=== PATIENT | female | born 1990 | race Caucasian/White ===

== ENCOUNTER 2025-03-04 20:23 | Emergency (ER) | payer OTHER, SELFPAY ==
[2025-03-04 21:29] VITALS: BP 130/88; PULSE 84; RESP 16; TEMP 37.2; O2SAT 100; BMI 31.0
[2025-03-04 21:45] VITALS: BP 138/85; PULSE 79; RESP 14; TEMP 36.7; O2SAT 100; BMI 31.0
--- OUTSIDE RECORDS SUMMARY | 2025-03-04 21:48 | XMS_ITS | Clinical Summary ---
Author Organization [facility] [place] [id number] Care Team Providers Care Disaster Response Director Name Role Phone Fifi Klein APRN Primary Care Provider [phone] Leigh Knox APRN Unavailable [phone] Allergies No known active allergies Medications Adderall XR 20 MG 24 hr capsule Take 1 capsule (20 mg) by mouth 3 (three) times a day. 08/27/2023 Active gabapentin (Neurontin) 600 MG tablet Take 1 tablet (600 mg) by mouth 1 (one) time each day. Active sertraline (Zoloft) 100 MG tablet Take 2 tablets (200 mg) by mouth 1 (one) time each day. Active methenamine hippurate (Hiprex) 1 g tabletIndicatio ns:Recurrent UTI Take 1 tablet (1 g) by mouth 2 (two) times a day. 60 tablet 11 05/08/2024 5 Active fluconazole (Diflucan) 150 MG tabletIndicatio ns:Yeast vaginitis TAKE 1 TABLET NOW AND 1 IN 4 DAYS. 2 tablet 1 05/08/2024 Active Active Problems Problem Noted Date Diagnosed Date Recurrent UTI 05/08/2024 Social History Tobacco Use Types Packs/Day Years Used Date Smoking Tobacco: Every Day Cigarettes Smokeless Tobacco: Never Tobacco Cessation:Ready to Q uit: Not Asked; Counseling Given: Not Answered Alcohol Use Standard Drinks/Week Comments Never 0 (1 standard drink = 0.6 oz pur e alcohol) PHQ-2 Answer Date Recorded Patient Health Questionnaire-2 Score 2 05/08/2024 Comments Unknown Sex and Gender Information Value Date Recorded Sex Assigned at Not on file Legal Sex Female 7:52 PM EDT Gender Identity Not on file Sexual Orientation Not on file Last Filed Vital Signs Vital Sign Reading Time Taken Comments Blood Pressure 119/81 05/08/2024 9:07 AM EDT Pulse 78 05/08/2024 9:07 AM EDT Temperature 36.7 C (98.1 F) 05/08/2024 9:07 AM EDT Respiratory Rate 12 05/08/2024 9:07 AM EDT Oxygen Saturation 99% 05/08/2024 9:07 AM EDT Inhaled Oxygen Concentration - - Weight 85.5 kg (188 lb 7.9 oz) 05/08/2024 9:07 A M EDT Height 162.6 cm (5' 4 ) 05/08/2024 9:07 AM EDT Body Mass Index 32.35 05/08/2024 9:07 AM EDT Plan of Treatment Health Maintenance Due Date Last Done Comments [facility]-HIV Screening 1990 [facility]-Hepatitis C Screening 1990 [facility]-/Child/Adol SDOH Screenings 1990 [facility]-Varicella Vaccines (1 of 2 - 13+ 2-dose series) 2003 HPV Vaccines (1 - 3-dose series) 2005 [facility]- SDOH Screenings 2008 [facility]-Adult SDOH Screenings 2008 [facility]-DTaP,Tdap,and Td Vaccine s (1 - Tdap) 2009 [facility]-Pneumococcal Vaccine: Pediatrics (0 to 5 Years) and At-Risk Patients (6 to 49 Years) (1 of 2 - PCV) 2009 [facility]-HPV/Cotest 2020 [facility]-WFNZO-12 Vaccine (1 - season) 2024 [facility]-Influenza Vaccine (#1) 2025 [facility]-Depression Screening 05/08/2025 05/08/2024 [facility]-Cervical Cancer Screening 04/09/2026 [facility]-Pap Smear 04/09/2026 04/09/2023 [facility]-Zoster Vaccines (1 of 2) 2040 [facility]-Hepatitis B Vaccines Completed 999, 06/10/1998, 03/11/1998 [facility]-Obesity Intervention Completed 05/08/2024 [facility]-HIB Vaccines Aged Out No longer e ligible based on patient's age to complete this topic [facility]-Hepatitis A Vaccines Aged Out No longer eligible based on patient's age to complete this topic [facility]-IPV Vaccines Aged Out No longer e ligible based on patient's age to complete this topic [facility]-Rotavirus Vaccines Aged Out No lo nger eligible based on patient's age to complete this topic Insurance MEDICAID Care Teams Disaster Response Director Relationship Specialty Start Date End Date Fifi Klein APRN [address] [place] [address] PCP - General 03/20/24 Leigh Knox APRN [address] [facility] [address] [place] [address] Nurse Practitioner Urology 05/08/24
[2025-03-04] MEDS: ACETAMINOPHEN 500MG TAB 1000 MG PO (21:55)
[2025-03-04] MEDS: LACTATED RINGERS 1000ML 500 ML 999 ML IV (21:55)
[2025-03-04 22:17] LABS: Microscopic, Urine URINE MICROSCOPIC (MICROSCOPIC)
[2025-03-04 22:19] LABS: Hematocrit 38.3 % (37.0-47.0); Hemoglobin 12.5 g/dL (12.2-16.2); Immature Granulocytes % 0.3 %; Mean Corpuscular HGB Conc 32.6 g/dL (31.8-35.4); Mean Corpuscular Hemoglobin 29.2 pg (27.0-31.2); Mean Corpuscular Volume 89.5 fl (81-99); Nucleated Red Blood Cells % 0 %; Platelet Count 266 K/mm3 (142-424); Red Blood Count 4.28 M/mm3 (4.20-5.40); Red Cell Distribution Width-SD 42.5 fL; White Blood Count 7.8 K/mm3 (4.8-10.8)
[2025-03-04 22:37] LABS: Alanine Aminotransferase 12 U/L (12-78); Albumin Level 4.7 g/dl (3.5-5.0); Albumin/Globulin Ratio 1.5 (1.1-1.8); Alkaline Phosphatase 53 U/L (38-126); Anion Gap 13.6 mEq/L (5-15); Aspartate Amino Transferase 22 U/L (14-36); Bilirubin,Total 0.8 mg/dl (0.2-1.3); Blood Urea Nitrogen 14 mg/dl (7-17); Calcium 9.4 mg/dl (8.4-10.2); Carbon Dioxide 26 mmol/L (22.0-30.0); Chloride 101 mmol/L (98-107); Creatinine Clearance Estimated 147 mL/min (50-200); Creatinine,Serum 0.70 mg/dl (0.52-1.04); Estimated Glomerular Filt Rate 96 ml/min (>60); GFR (African American) 116 ML/MIN (>60); Globulin 3.1 g/dL (1.3-3.2); Glucose 90 mg/dl (74-100); Lipase 39 U/L (23-300); Potassium 3.6 mmoL/L (3.5-5.1); Sodium 137 mmol/L (136-145); Total Protein,Serum 7.8 g/dl (6.3-8.2)
[2025-03-04 22:47] LABS: Bilirubin,Urine Negative (Negative); Color,Urine YELLOW (Yellow); Glucose,Urine (UA) Negative (Negative); Ketones,Urine Negative (Negative); Leukocyte Esterase,Urine Negative (Negative); PH,Urine 6.0 (5.0-8.5); Protein,Urine Negative (Negative); Specific Gravity, Urine 1.020 (1.005-1.030); Urobilinogen,Urine 0.2 EU/dl (0.2)
[2025-03-04 23:00] VITALS: BP 122/85; PULSE 97; O2SAT 98
[2025-03-04 23:08] LABS: Bacteria,Urine Trace /lpf
--- NOTE | 2025-03-04 23:10 | ED_ITS ---
Discharge Plan Disposition Patient Disposition: Home, Self-Care Prescriptions Prescriptions: New cefadroxil 500 mg capsule 500 mg PO BID 7 Days Qty: 14 0RF Referrals Follow up/Referrals: Linda Ahuja DO [Staff Physician, [facility]] - See instructions Provider,Referral, [Primary Care Provider, Medical] - See instructions Activity Restrictions/Add. Instructions Additional Instructions/Restrictions: You likely have a very early based on your lab work today. You also were found to have a urinary tract infection. Take the antibiotics as prescribed. You are being given referral to Dr. Ahuja, with [facility] to follow-up your . Take a vitamin regularly. You can take Tylenol to help with your pain. If you develop any new or worsening symptoms, such as fever, worsening pain, or if you become concerned for your health for any reason, return to the emergency department for evaluation. Clinical Impressions Clinical Impression: UTI (urinary tract infection), Positive blood test, Back pain Instructions Patient Instructions: DI for Acute Abdominal Pain Print Language Print Language: Wolof Discharge ED Provider: Tan Hi General Adult HPI General Chief complaint: Abdominal Pain Stated complaint: lower back pain,nausea,weakness,painful urination Time Seen by Provider: 03/04/25 21:23 Mode of Arrival: Family Vehicle Source of Information: Patient Description of Symptoms (Recalled from ER Triage Doc. by RN): Dysuria Pt presents to the ED with c/o dysuria and R sided flank pain X 2 weeks. Pt reports that she thinks she has a UTI and has self medicated at home with old antibiotics but is not getting better. Pt rpeorts hx of UTIs. Pt also reports that she took positive test today but is unsure how far along she is. Reports LMP X 1 month ago. History of Present Illness HPI narrative: Tricia Wick is a 34-year-old female who presents to the emergency department for complaints of bilateral back pain as well as dysuria. Patient states that she has had pain at the end of urination for 1 week and believes that she may have a urinary tract infection. She also reports initially having left-sided kidney pain that is now on both sides of her back. She has felt chilled. She denies any vomiting, diarrhea, vaginal discharge or bleeding. She does note that earlier today she took 3 at home test that were both faintly positive. Her last menstrual period was at the beginning of last month and she is around the time where she should start her period currently. Related Data Previous Rx's ?Medication ?Instructions ?Recorded cefadroxil 500 mg capsule 500 mg PO BID 7 days #14 cap s 03/04/25 Allergies Allergy/AdvReac Type Severity Reaction Status Date / Time No Known Drug Allergies Allergy Unknown Verified 03/04/25 21:52 allergy reaction [facility] Disclaimer: The information contained in this section may have been updated after the patient was seen, as this information can be updated by other users. Social History Smoking Status: Current every day smoker alcohol intake: never current occupational status: employed Travel in the last 8 weeks?: Inside the [place] ROS Obtained: Yes Systems reviewed as appropriate & no additional complaints except as documented Physical Exam General General appearance: alert and in no apparent distress Comment: appears uncomfortable Head Head exam: atraumatic Eye Eye exam: Present normal appearance ENT ENT exam: Present normal external ear exam Neck Neck exam: Present full ROM Chest Chest inspection: Present symmetric chest wall rise Respiratory Respiratory exam: Present normal lung sounds bilaterally; Absent respiratory distress Cardiovascular Cardiovascular exam: Present regular rate and normal rhythm Abdominal Exam Abdominal exam: Present soft; Absent tenderness or guarding Extremities Exam Extremities exam: Present normal inspection Back Exam Back exam: Present normal inspection; Absent CVA tenderness (R) or CVA tenderness (L) Neurological Exam Neurological exam: Present alert and oriented X3 Psychiatric Psychiatric exam: Present normal affect Skin Skin exam: Present warm and dry Medical Decision Making Medical Records Screening: Per USPSTF and CDC recommendations, given the prevalence of disease in our region, it is our hospital?s policy to screen for HIV and viral Hepatitis for all patients aged 18 and over and those with ongoing risk factors. Jon Inquiry Pt receiving controlled substance: No Vital Signs: 03/04/25 21:29 03/04/25 21:45 03/04/25 23:00 Temperature 98.9 F 98.1 F Temperature Source Oral Oral Pulse Rate 97 H Pulse Rate [Left] 84 79 Respiratory Rate 16 14 Blood Pressure 122/85 Blood Pressure [Right Arm] 130/88 138/85 Blood Pressure Mean 99 Blood Pressure Mean [Right Arm] 102 102 Blood Pressure Source Blood Pressure Source [Right Arm] Automatic Cuff Blood Pressure Position Blood Pressure Position [Right Arm] Sitting 02 Sat by Pulse Oximetry 100 100 98 Oxygen Delivery Method Room Air Room Air 03/04/25 23:30 03/05/25 00:00 03/05/25 00:30 Temperature Temperature Source Pulse Rate 88 88 75 Pulse Rate [Left] Respiratory Rate Blood Pressure 123/80 132/89 133/82 Blood Pressure [Right Arm] Blood Pressure Mean 102 105 99 Blood Pressure Mean [Right Arm] Blood Pressure Source Blood Pressure Source [Right Arm] Blood Pressure Position Blood Pressure Position [Right Arm] 02 Sat by Pulse Oximetry 96 99 100 Oxygen Delivery Method 03/05/25 01:02 Temperature 98.1 F Temperature Source Oral Pulse Rate 75 Pulse Rate [Left] Respiratory Rate 14 Blood Pressure 133/82 Blood Pressure [Right Arm] Blood Pressure Mean Blood Pressure Mean [Right Arm] Blood Pressure Source Automatic Cuff Blood Pressure Source [Right Arm] Blood Pressure Position Sitting Blood Pressure Position [Right Arm] 02 Sat by Pulse Oximetry Oxygen Delivery Method Room Air Lab Data Lab Results 03/04/25 22:05: WBC 7.8, RBC 4.28, Hgb 12.5, Hct 38.3, MCV 89.5, MCH 29.2, MCHC 32.6, RDW 13.2, Plt Count 266, MPV 9.9, Neut % (Auto) 68.0, Lymph % (Auto) 24.4, Burt % (Auto) 6.1, Eos % (Auto) 0.8, Baso % (Auto) 0.4, Neut # (Auto) 5.3, Lymph # (Auto) 1.9, Burt # (Auto) 0.5, Eos # (Auto) 0.1, Baso # (Auto) 0.0, Sodium 137, Potassium 3.6, Chloride 101, Carbon Dioxide 26, Anion Gap 13.6, BUN 14, Creatinine 0.70, Estimated Creat Clear 147, Estimated GFR 96, Est GFR ( Amer) 116, Glucose 90, Calcium 9.4, Total Bilirubin 0.8, AST 22, ALT 12, Alkaline Phosphatase 53, Total Protein 7.8, Albumin 4.7, Globulin 3.1, Albumin/Globulin Ratio 1.5, Lipase 39, HCG, Quant 9 H, Urine Color Yellow, Urine Appearance Clear, Urine pH 6.0, Ur Specific Thompson 1.020, Urine Protein Negative, Urine Glucose (UA) Negative, Urine Ketones Negative, Urine Blood Negative, Urine Nitrate Negative, Urine Bilirubin Negative, Urine Urobilinogen 0.2, Ur Leukocyte Esterase Negative, Urine WBC 10-20, Ur Squamous Epith Cells 5- 10, Urine Bacteria Trace, HCV Ab JODEE w/Rflx PCR Qn Negative, HIV Ag/Ab Combo Qual Negative 03/04/25 22:05 03/04/25 22:05 Orders (Tests/Meds): ED MEDICATIONS Discontinued Medications Generic Name Dose Route Start Last Admin Trade Name Freq PRN Reason Stop Dose Admin Acetaminophen 1,000 mg 03/04/25 21:36 03/04/25 21:55 Acetaminophen 500mg Tab PO 03/04/25 21:37 1,000 mg ONCE ONE Administration Lactated Ringer's 500 mls @ 999 mls/hr 03/04/25 21:36 03/04/25 21:55 Lactated Ringer's 1000 Ml Bag IV 03/04/25 22:06 999 mls/hr .Q31M ONE Administration Lactated Ringer's 500 mls @ 999 mls/hr 03/04/25 23:53 03/05/25 00:13 Lactated Ringer's 500ml IV 03/05/25 00:23 Not Given .Q31M ONE Oxycodone HCl 5 mg 03/04/25 23:53 03/05/25 00:18 Oxycodone 5mg Immediate Release Tablet PO 03/04/25 23:54 5 mg ONCE ONE Administration Pyridoxine HCl 50 mg 03/04/25 21:37 03/04/25 22:27 Pyridoxine (Vitamin B6) 50mg Tablet PO 03/04/25 21:38 Not Given ONCE ONE ORDERS Category Date Time Status POCUS Point of Care (ER Only) Stat Exams 03/04/25 21:32 Taken CBC w/Auto Diff [Complete Blood Count Auto Diff] Stat Lab 03/04/25 22:05 Completed CMP [Comprehensive Metabolic Panel] Stat Lab 03/04/25 22:05 Completed HCG,Quantitative Stat Lab 03/04/25 22:05 Completed HIV Combo Stat Lab 03/04/25 22:05 Completed Hepatitis C Ab Qual. W/ RFX Stat Lab 03/04/25 22:05 Completed Lipase Stat Lab 03/04/25 22:05 Completed UA [Urinalysis and Microscopic] Stat Lab 03/04/25 22:05 Completed Urine Culture Stat Micro 03/04/25 22:05 Received Medical Decision Narrative: Tricia Wick is a 34-year-old female who presents to the emergency department for complaints of bilateral back pain as well as dysuria. Patient states that she has had pain at the end of urination for 1 week and believes that she may have a urinary tract infection. She also reports initially having left-sided kidney pain that is now on both sides of her back. She has felt chilled. She denies any vomiting, diarrhea, vaginal discharge, abdominal pain, or bleeding. She does note that earlier today she took 3 at home test that were both faintly positive. Her last menstrual period was at the beginning of last month and she is around the time where she should start her period currently. On arrival, patient is hemodynamically stable, normotensive, heart rate within normal limits, breathing comfortably on room air with appropriate oxygen saturation. Physical exam, as stated above, revealed an uncomfortable appearing female in no acute respiratory distress. Abdomen is soft, nontender nondistended. Cardiopulmonary exam is unremarkable. She has no CVA tenderness bilaterally. Differential diagnosis includes, but is not limited to: Urinary tract infection, kidney stone, . Patient is not having vaginal discharge and is not concerned about any possible sexually transmitted diseases. Dehydration, AGUS, among others. Workup in the emergency department included: CBC with differential, CMP, urinalysis, quantitative hCG, lipase, [id number] renal ultrasound bilaterally. Renal ultrasound performed by me. Patient was treated with 1 L lactated Ringer's as well as 1 g of Tylenol initially and received a 5 mg oxycodone orally for continued pain. No hydronephrosis or renal stone was appreciated bilaterally. See procedure note for details. Laboratory and urine workup interpreted by me personally as well. Patient's quantitative hCG is barely positive at 9, likely indicating a very early . Patient's urine shows 10-20 white blood cells with trace bacteria consistent with urinary tract infection given she is symptomatic. Laboratory studies otherwise unremarkable. Given this, is felt the patient has a urinary tract infection on is appropriate for outpatient antibiotics. Will treat with cefadroxil. Also encouraged to start vitamins. Patient is new to the area and does not have primary care providers. Will refer her to an DENTAL EQUIPMENT MECHANIC to establish care. Return precautions were given. All questions were answered. She demonstrated understanding and was in agreement this plan. She was then discharged from the emergency department in stable condition. Procedures Limited Ultrasound Interpretation:: Limited renal ultrasound Indication: A focused ultrasound of the kidneys was performed to evaluate for hydronephrosis and nephrolithiasis. The ultrasound was performed with the following indications, as noted in the H&P: Bilateral flank pain Identified structures: Both kidneys Findings: Bilateral kidneys both normal. No intrarenal or ureteral or vesicular calculi Impression: -Normal limited renal ultrasound, no evidence of hydronephrosis or calculi Images were saved to permanent archive The study was technically adequate CPT: 98190-21 This study was performed by me, and I personally interpreted all images/videos. Based on my clinical judgement, these images were [adequate/inadequate] and [did/did not] necessitate further imaging. Critical Care Critical Care Time Critical Care Time: No
[2025-03-04 23:25] LABS: Hepatitis C Ab Qual. W/ RFX NEGATIVE (Negative)
[2025-03-04 23:30] VITALS: BP 123/80; PULSE 88; O2SAT 96
[2025-03-05] VITALS: BP 132/89; PULSE 88; O2SAT 99
[2025-03-05] MEDS: OXYCODONE 5MG IMMEDIATE RELEASE TABLET 5 MG PO (00:18)
[2025-03-05 00:30] VITALS: BP 133/82; PULSE 75; O2SAT 100
[2025-03-05 01:02] VITALS: BP 133/82; PULSE 75; RESP 14; TEMP 36.7; O2SAT 100
--- NOTE | 2025-03-07 09:40 | PC.NURSE ---
Urine culture results reviewed by Dr. Mcelroy. No new orders received.
--- NOTE | 2025-03-10 08:59 | PC.NURSE ---
Urine culture results reviewed by Dr. Maki, no new orders received.
== END 2025-03-05 01:10 | disposition home or self-care (01) ==
PROVIDERS: Emergency Provider Student in an Organized Health Care Education/Training Program
DX: N39.0 Urinary tract infection, site not specified (principal); R30.0 Dysuria; M54.59 Other low back pain; Z32.01 Encounter for pregnancy test, result positive
CPT/HCPCS: 80053; 81001; 83690; 84702; 85025; 86803; 87086; 87088; 87186; 87389; 99284; J7120

== ENCOUNTER 2025-04-25 16:22 | Emergency (ER) | payer OTHER, SELFPAY ==
--- OUTSIDE RECORDS SUMMARY | 2025-03-26 15:51 | XMS_ITS | Encounter Summary ---
Author Organization [facility] Address [address] [place] [address] Care Team Providers Care Electronic Imager Name Role Phone Provider, No Known Primary Care Provider Unavail able Reason for Visit * Reason Comments Vomiting During Encounter Details Date Type Department Care Team (Late st Contact Info) Description 03/26/2025 3:51 PM EDT - 03/26/2025 6:39 PM EDT Emergency [facility] [address] [place] [address] Holli Butler MD [address] [facility] [place] [address] Nausea and vomiting during (Primary Dx); Less than 8 weeks gestation of Discharge Disposition: Home or Self Care Social History Tobacco Use Types Packs/Day Years Used Date Smoking Tobacco: Every Day Cigarettes 1 17.7 Started: 2007 Smokeless Tobacco: Never Alcohol Use Standard Drinks/Week Comments Not Currently 0 (1 standard drink = 0.6 oz pur e alcohol) wine once monthly AUDIT-C Answer Date Recorded Q1: How often do you have a drink containing alcohol? Never 11/23/2023 Q2: How many drinks containi ng alcohol do you have on a typical day when you are drinking? Patient does not drink Q3: How often do you have si x or more drinks on one occasion? Never 11/23/2023 Abuse Screen Answer Date Recorded Feels Unsafe at Home or Work/School no 03/26/2025 Feels Threatened by Someone no 02/28 Does Anyone Try to Keep You From Having Contact with Others or Doing Things Outside Your Home? no 03/26/2025 Physical Signs of Abuse Present no 03/26/2025 Housing Stability Answer Date Recorded Current Living Arrangements home 10/29 Potentially Unsafe Housing Conditions Not on kimmie e 11/23/2023 Disabilities Answer Date Recorded Difficulty Concentrating, Remembering or Making Decisions no 11/23/2023 Difficulty Managing Errands Independently no 11/23/2023 Estimated Date of Delivery Comme nts Yes 11/13/2025 Based on last me nstrual period of 02/06/2025 (Exact Date) Sex and Gender Information Value Date Recorded Sex Assigned at Not on file Legal Sex Female 3:46 PM EDT Gender Identity Not on file Sexual Orientation Not on file documented as of this encounter Last Filed Vital Signs Vital Sign Reading Time Taken Comments Blood Pressure 109/73 03/26/2025 3:12 PM EDT Pulse 73 03/26/2025 3:12 PM EDT Temperature 36.8 C (98.2 F) 03/26/2025 3:12 PM EDT Respiratory Rate 16 03/26/2025 3:12 PM EDT Oxygen Saturation 100% 03/26/2025 3:12 PM EDT Inhaled Oxygen Concentration - - Weight 83.9 kg (185 lb) 03/26/2025 3:12 PM EDT Height 162.6 cm (5' 4 ) 03/26/2025 3:12 PM EDT Body Mass Index 31.76 03/26/2025 3:12 PM EDT documented in this encounter Functional Status * Calculated C-SSRS Risk Score (Lifetime/Recent) Answer Date of Assessment Author No Risk Indicated 03/26/2025 4:10 PM EDT Evy Cohen RN * [place] Suicide Severity Rating Scale (Screener/Recent Self-Report) Question Answer Date of Assessment Author 1. Wish to be (Past 1 Month) No 025 4:10 PM EDT Prince Cohen, MARY 2. Non-Specific Active Suici trey Thoughts (Past 1 Month) No 03/26/2025 4:10 PM EDT Prince Cohen RN 6. Suicidal Behavior (Lifetime) No 4:10 PM EDT Prince Cohen RN documented as of this encounter Discharge Instructions * Attachments The following attachments cannot be sent through Care Everywhere. * Severe Morning Sickness: What to Know (Samoan) * First Trimester of (Samoan) documented in this encounter Medications at Time of Discharge amphetamine-dextr oamphetamine XR (ADDERALL XR) 30 MG 24 hr capsule Take 1 capsule by mouth Every Morning 02/01/2025 folic acid (FOLVITE) 400 MCG tablet Take 1 tablet by mouth Daily. 90 tablet 1 11/14/2024 gabapentin (NEURONTIN) 600 MG tablet Take 1 tablet by mouth 3 (Three) Times a Day. HYDROcodone-aceta minophen (NORCO) 7.5-325 MG per tablet 1 tablet As Needed for Mild Pain. 03/15/2025 sertraline (ZOLOFT) 100 MG tablet Take 2 tablets by mouth Daily. amphetamine-dextr oamphetamine (ADDERALL) 20 MG tablet Take 1 tablet by mouth Daily. 04/09/2025 Ferric Maltol (ACCRUFeR) 30 MG capsule Take 1 capsule by mouth 2 (Two) Times a Day. 60 capsule 5 11/14/2024 04/09/2025 documented as of this encounter ED Notes * Pili Brandon APRN - 03/26/2025 3:58 PM EDT EMERGENCY DEPARTMENT ENCOUNTER Pt Name: Tricia Wick Pt : 1990 Room Number: RW2/R2 Date of encounter: 03/26/2025 PCP: Provider, No Known ED Provider: Pili Brandon APRN Historian: Patient HPI: Chief Complaint: Nausea, vomiting Context: Tricia Wick is a 34 y.o. female who presents to the ED c/o nausea and vomiting since 2 days ago. Patient reports being currently , last menstrual period 02/06/2025 G7, . Reports severe nausea, vomiting, not able to keep food or fluids down. Denies abdominal pain, vaginal bleeding or discharge. Has appoint with FIELD SERVICE REPRESENTATIVE on April 09. PAST MEDICAL HISTORY Past Medical History: Diagnosis Date ADHD Anxiety Depression Encounter for IUD removal 04/09/2023 Paragard History of miscarriage History of panic attacks most recent 2 months ago, as of 04/09/2023 Ovarian cyst PCB (post coital bleeding) Sciatica, left side PAST SURGICAL HISTORY Past Surgical History: Procedure Laterality Date APPENDECTOMY N/A 11/23/2023 Procedure: APPENDECTOMY LAPAROSCOPIC; Surgeon: Bairon Campbell MD; Location: [facility]; Service: General; Laterality: N/A; SECTION x5 DENTAL PROCEDURE implants DILATATION AND CURETTAGE 2019 post-MAB FAMILY HISTORY Family History Problem Relation Age of Onset Asthma Mother Diabetes Mother Hyperlipidemia Mother Irritable bowel syndrome Mother Nephrolithiasis Mother Colon cancer Paternal Grandmother Arthritis Maternal Grandmother Hypertension Maternal Grandmother Nephrolithiasis Maternal Grandmother Breast cancer Neg Hx Ovarian cancer Neg Hx Uterine cancer Neg Hx SOCIAL HISTORY Social History Socioeconomic History Marital status: Tobacco Use Smoking status: Every Day Current packs/day: 1.00 Average packs/day: 1 pack/day for 17.6 years (17.6 ttl pk-yrs) Types: Cigarettes Start date: 2007 Smokeless tobacco: Never Vaping Use Vaping status: Some Days Substances: Nicotine Devices: Disposable Substance and Sexual Activity Alcohol use: Not Currently Comment: wine once monthly Drug use: Never Sexual activity: Yes Partners: Male ALLERGIES Patient has no known allergies. REVIEW OF SYSTEMS Review of Systems All systems reviewed and negative except for those discussed in HPI. PHYSICAL EXAM I have reviewed the triage vital signs and nursing notes. ED Triage Vitals [03/26/25 1512] Temp Heart Rate Resp BP SpO2 98.2 ??F (36.8 ??C) 73 16 109/73 100 % Temp src Heart Rate Source Patient Position BP Location FiO2 (%) Oral Monitor Sitting -- -- Physical Exam GENERAL: Appears in no acute distress. HENT: Nares patent. EYES: No scleral icterus. CV: Regular rhythm, regular rate. No pedal edema RESPIRATORY: Normal effort. No audible wheezes, rales or rhonchi. ABDOMEN: Soft, nontender MUSCULOSKELETAL: No deformities. NEURO: Alert, moves all extremities, follows commands. SKIN: Warm, dry, no rash visualized. LAB RESULTS Recent Results (from the past 24 hours) hCG, Quantitative, Collection Time: 03/26/25 4:18 PM Specimen: Blood Result Value Ref Range HCG Quantitative 36,415.00 mIU/mL Comprehensive Metabolic Panel Collection Time: 03/26/25 4:18 PM Specimen: Blood Result Value Ref Range Glucose 89 65 - 99 mg/dL BUN 8.4 6.0 - 20.0 mg/dL Creatinine 0.60 0.57 - 1.00 mg/dL Sodium 137 136 - 145 mmol/L Potassium 3.8 3.5 - 5.2 mmol/L Chloride 103 98 - 107 mmol/L CO2 26.0 22.0 - 29.0 mmol/L Calcium 9.5 8.6 - 10.5 mg/dL Total Protein 6.9 6.0 - 8.5 g/dL Albumin 4.1 3.5 - 5.2 g/dL ALT (SGPT) 7 1 - 33 U/L AST (SGOT) 10 1 - 32 U/L Alkaline Phosphatase 47 39 - 117 U/L Total Bilirubin 0.3 0.0 - 1.2 mg/dL Globulin 2.8 gm/dL A/G Ratio 1.5 g/dL BUN/Creatinine Ratio 14.0 7.0 - 25.0 Anion Gap 8.0 5.0 - 15.0 mmol/L eGFR 121.0 >60.0 mL/min/1.73 Lipase Collection Time: 03/26/25 4:18 PM Specimen: Blood Result Value Ref Range Lipase 16 13 - 60 U/L CBC Auto Differential Collection Time: 03/26/25 4:18 PM Specimen: Blood Result Value Ref Range WBC 7.08 3.40 - 10.80 10*3/mm3 RBC 4.18 3.77 - 5.28 10*6/mm3 Hemoglobin 12.3 12.0 - 15.9 g/dL Hematocrit 37.6 34.0 - 46.6 % MCV 90.0 79.0 - 97.0 fL MCH 29.4 26.6 - 33.0 pg MCHC 32.7 31.5 - 35.7 g/dL RDW 13.2 12.3 - 15.4 % RDW-SD 43.6 37.0 - 54.0 fl MPV 9.9 6.0 - 12.0 fL Platelets 230 140 - 450 10*3/mm3 Neutrophil % 70.3 42.7 - 76.0 % Lymphocyte % 22.0 19.6 - 45.3 % Monocyte % 6.6 5.0 - 12.0 % Eosinophil % 0.6 0.3 - 6.2 % Basophil % 0.4 0.0 - 1.5 % Immature Grans % 0.1 0.0 - 0.5 % Neutrophils, Absolute 4.97 1.70 - 7.00 10*3/mm3 Lymphocytes, Absolute 1.56 0.70 - 3.10 10*3/mm3 Monocytes, Absolute 0.47 0.10 - 0.90 10*3/mm3 Eosinophils, Absolute 0.04 0.00 - 0.40 10*3/mm3 Basophils, Absolute 0.03 0.00 - 0.20 10*3/mm3 Immature Grans, Absolute 0.01 0.00 - 0.05 10*3/mm3 nRBC 0.0 0.0 - 0.2 /100 WBC Urinalysis With Culture If Indicated - Urine, Clean Catch Collection Time: 03/26/25 5:10 PM Specimen: Urine, Clean Catch Result Value Ref Range Color, UA Yellow Yellow, Straw Appearance, UA Cloudy (A) Clear pH, UA 7.5 5.0 - 8.0 Specific [place], UA 1.018 1.005 - 1.030 Glucose, UA Negative Negative Ketones, UA Negative Negative Bilirubin, UA Negative Negative Blood, UA Negative Negative Protein, UA Negative Negative Leuk Esterase, UA Negative Negative Nitrite, UA Negative Negative Urobilinogen, UA 0.2 E.U./dL 0.2 - 1.0 E.U./dL Urinalysis, Microscopic Only - Urine, Clean Catch Collection Time: 03/26/25 5:10 PM Specimen: Urine, Clean Catch Result Value Ref Range RBC, UA 0-2 None Seen, 0-2 /HPF WBC, UA 0-2 None Seen, 0-2 /HPF Bacteria, UA None Seen None Seen /HPF Squamous Epithelial Cells, UA 0-2 None Seen, 0-2 /HPF Hyaline Casts, UA None Seen None Seen /LPF Methodology Automated Microscopy POC Urine Collection Time: 03/26/25 5:12 PM Specimen: Urine Result Value Ref Range HCG, Urine, QL Positive (A) Lot Number [id number] Internal Positive Control Positive Internal Negative Control Negative Expiration Date If labs were ordered, I independently reviewed the results and considered them in treating the patient. PROCEDURES Procedures No orders to display MEDICATIONS GIVEN IN ER Medications sodium chloride 0.9 % flush 10 mL (has no administration in time range) thiamine (B-1) injection 100 mg (100 mg Intravenous Given 03/26/25 1624) sodium chloride 0.9 % bolus 1,000 mL (0 mL Intravenous Stopped 03/26/25 1700) ondansetron (ZOFRAN) injection 4 mg (4 mg Intravenous Given 03/26/25 1624) MEDICAL DECISION MAKING, PROGRESS, and CONSULTS All labs, if obtained, have been independently reviewed by me. All radiology studies, if obtained, have been reviewed by me and the radiologist dictating the report. All EKG's, if obtained, have beenindependently viewed and interpreted by me/my attending physician. Discussion below represents my analysis of pertinent findings related to patient's condition, differential diagnosis, treatment plan and final disposition. Patient is 34-year-old female A1, currently with last menstrual period on February 06 presented for evaluation of nausea and vomiting. Symptoms onset 2 days ago. No abdominal pain or vaginalbleeding, lab work was grossly unremarkable, hCG quant 36,415. Patient received fluids, antiemeticswith good result, felt much better, was hungry, was ready to be discharged. No transvaginal ultrasound was ordered -no abdominal pain or bleeding. Patient has upcoming appointment with FIELD SERVICE REPRESENTATIVE. She advised by FIELD SERVICE REPRESENTATIVE earlier today to take B6 and Unisom combination; she was discharged home in stable condition, return precautions discussed Differential diagnosis: Hyperemesis gravidarum, hypovolemia, anemia, electrolyte disbalance, dehydration, acute kidney injury Additional sources: - Discussed/ obtained information from independent historians: - External (non-ED) record review: Today 03/26/[address] Henning, patient was advised for B6 and Unisom combination for nausea and vomiting, was advised to come to ER for fluids - Chronic or social conditions impacting care: Currently - Shared decision making: Patient Orders placed during this visit: Orders Placed This Encounter Procedures Urine Culture - Urine, hCG, Quantitative, Urinalysis With Culture If Indicated - Urine, Clean Catch Comprehensive Metabolic Panel Lipase CBC Auto Differential Urinalysis, Microscopic Only - Urine, Clean Catch P.o. challenge Misc Nursing Order (Specify) POC Urine Insert Peripheral IV CBC & Differential Additional orders considered but not ordered: Transvaginal ultrasound ED Course: Consultants: Shared Decision Making: After my consideration of clinical presentation and any laboratory/radiology studies obtained, I discussed the findings with the patient/patient contact representative who is in agreement with the treatment plan and the final disposition. Risks and benefits of discharge and/or observation/admission were discussed. OF : EDT VITALS: BP - 109/73 HR - 73 TEMP - 98.2 ??F (36.8 ??C) (Oral) O2 SATS - 100% DIAGNOSIS Final diagnoses: Nausea and vomiting during Less than 8 weeks gestation of DISPOSITION DISCHARGE Patient discharged in stable condition. Reviewed implications of results, diagnosis, meds, responsibility to follow up, warning signs and symptoms of possible worsening, potential complications and reasons to return to ER. Patient/Family voiced understanding of above instructions. Discussed plan for discharge, as there is no emergent indication for admission. Pt/family is agreeable and understands need for follow up and possible repeat testing. Pt/family is aware that discharge does not mean that nothing is wrong but that it indicates no emergency is currently present that requires admission and they must continue care with follow-up as given below or with a physician of their choice. FOLLOW-UP Raudel Henning MD [address] [facility] [address] [place] [id number] Schedule an appointment as soon as possible for a visit [facility] [address] [facility] [phone] Medication List No changes were made to your prescriptions during this visit. Please note that portions of this document were completed with voice recognition software. Pili Brandon APRN 03/26/25 19:23 EDT Pili Brandon APRN 03/26/[id number] Cosigned by Holli Butler MD at 04/02/2025 3:10 PM EDT Associated attestation - Holli Butler MD - 04/02/2025 3:10 PM EDT SUPERVISE: For this patient encounter, I reviewed the APC's documentation, treatment plan, and medical decision making. Holli Butler MD 04/02/2025 15:10 EDT documented in this encounter Plan of Treatment Upcoming Encounters Date Type Department Care Team (Late st Contact Info) Description 05/07/2025 2:30 PM EDT Routine [facility] [address] [facility] [address] [place] [address] Raudel Henning MD [address] [place] [address] documented as of this encounter Procedures Procedure Name Priority Date/Time Associated Diagnosis Comments POCT PEFORM URINE STAT 03/26/2025 5:12 PM EDT URINALYSIS, MICROSCOPIC ONLY STAT 03/26/2025 5:10 PM EDT URINALYSIS W/ CULTURE IF INDICATED STAT 03/26/2025 5:10 PM EDT URINE CULTURE STAT 03/26/2025 5:10 PM EDT CBC WITH AUTO DIFFERENTIAL STAT 03/26/2025 4:18 PM EDT CBC AND DIFFERENTIAL STAT 03/26/2025 4:18 PM EDT HCG, QUANTITATIVE, STAT 03/26/2025 4:18 PM EDT LIPASE STAT 03/26/2025 4:18 PM EDT COMPREHENSIVE METABOLIC PANEL STAT 03/26/2025 4:18 PM EDT documented in this encounter Results * (ABNORMAL) POC Urine (03/26/2025 5:12 PM EDT) HCG, Urine, QL Positive(A) [facility] Lot Number [id number] [facility] Internal Positive Control Positive [facility] Internal Negative Control Negative [facility] Expiration Date [phone] [facility] Urine 03/26/2025 5:12 PM EDT Pili Flores APRN POINT OF CARE TEST ORDERABLE S Final Result [facility]
[address] [place] [address], [place] [phone] * Urine Culture - Urine, Urine, Clean Catch (03/26/2025 5:10 PM EDT) Urine Culture No growth ÁNGEL 03/28/2025 4:10 AM EDT [facility] Urine Urine specimen obtained by clean catch procedure / Unknown Collection / Unknown 03/26/2025 5:10 PM EDT 03/26/2025 5:25 PM EDT us Pili Flores APRN MICROBIOLOGY - GENERAL ORDER TORI Final Result [facility]
[address] [place] [address], [place] [phone] * Urinalysis, Microscopic Only - Urine, Clean Catch (03/26/2025 5:10 PM EDT) RBC, UA 0-2 None Seen, 0-2 /HPF 03/26/2025 5:34 PM EDT [facility] WBC, UA 0-2 None Seen, 0-2 /HPF 03/26/2025 5:34 PM EDT [facility] Bacteria, UA None Seen None Seen /HPF 03/26/2025 5:34 PM EDT [facility] Squamous Epithelial Cells, UA 0-2 None Seen, 0-2 /HPF 03/26/2025 5:34 PM EDT [facility] Hyaline Casts, UA None Seen None Seen /LPF 03/26/2025 5:34 PM EDT [facility] Methodology Automated Microscopy 03/26/2025 5:34 PM EDT [facility] Urine Urine specimen obtained by clean catch procedure / Unknown Collection / Unknown 03/26/2025 5:10 PM EDT 03/26/2025 5:25 PM EDT us Pili Flores APRN URINE ORDERABLES Final Resul t [facility]
[address] [place] [address], * (ABNORMAL) Urinalysis With Culture If Indicated - Urine, Clean Catch (03/26/2025 5:10 PM EDT) Color, UA Yellow Yellow, Straw 03/26/2025 5:34 PM EDT [facility] Appearance, UA Cloudy(A) Clear 03/26/2025 5:34 PM EDT [facility] pH, UA 7.5 5.0 - 8.0 03/26/2025 5:34 PM EDT [facility] Specific [place], UA 1.018 1.005 - 1.030 03/26/2025 5:34 PM EDT [facility] Glucose, UA Negative Negative 03/26/2025 5:34 PM EDT [facility] Ketones, UA Negative Negative 03/26/2025 5:34 PM EDT [facility] Bilirubin, UA Negative Negative 03/26/2025 5:34 PM EDT [facility] Blood, UA Negative Negative 03/26/2025 5:34 PM EDT [facility] Protein, UA Negative Negative 03/26/2025 5:34 PM EDT [facility] Leuk Esterase, UA Negative Negative 03/26/2025 5:34 PM EDT [facility] Nitrite, UA Negative Negative 03/26/2025 5:34 PM EDT [facility] Urobilinogen, UA 0.2 E.U./dL 0.2 - 1.0 E.U./dL 03/26/2025 5:34 PM EDT [facility] Urine Urine specimen obtained by clean catch procedure / Unknown Collection / Unknown 03/26/2025 5:10 PM EDT 03/26/2025 5:25 PM EDT [facility] - 03/26/2025 5:34 PM EDT In absence of clinical symptoms, the presence of pyuria, bacteria, and/or nitrites on the urinalysis result does not correlate with infection. us Pili Flores APRN URINE ORDERABLES Final Resul t [facility]
[address] [place] [address], * CBC Auto Differential (03/26/2025 4:18 PM EDT) WBC 7.08 3.40 - 10.80 10*3/mm3 03/26/2025 4:30 PM EDT [facility] RBC 4.18 3.77 - 5.28 10*6/mm3 03/26/2025 4:30 PM EDT [facility] Hemoglobin 12.3 12.0 - 15.9 g/dL 03/26/2025 4:30 PM EDT [facility] Hematocrit 37.6 34.0 - 46.6 % 03/26/2025 4:30 PM EDT [facility] MCV 90.0 79.0 - 97.0 fL 03/26/2025 4:30 PM EDT [facility] MCH 29.4 26.6 - 33.0 pg 03/26/2025 4:30 PM EDT [facility] MCHC 32.7 31.5 - 35.7 g/dL 03/26/2025 4:30 PM EDT [facility] RDW 13.2 12.3 - 15.4 % 03/26/2025 4:30 PM EDT [facility] RDW-SD 43.6 37.0 - 54.0 fl 03/26/2025 4:30 PM EDT [facility] MPV 9.9 6.0 - 12.0 fL 03/26/2025 4:30 PM EDT [facility] Platelets 230 140 - 450 10*3/mm3 03/26/2025 4:30 PM EDT [facility] Neutrophil % 70.3 42.7 - 76.0 % 03/26/2025 4:30 PM EDT [facility] Lymphocyte % 22.0 19.6 - 45.3 % 03/26/2025 4:30 PM EDT [facility] Monocyte % 6.6 5.0 - 12.0 % 03/[facility]25 [facility] Eosinophil % 0.6 0.3 - 6.2 % 03/26/2025 4:[facility] Basophil % 0.4 0.0 - 1.5 % 03/26/2025 4:30 PM EDT [facility] Immature Grans % 0.1 0.0 - 0.5 % 03/26/2025 4:30 [facility] Neutrophils, Absolute 4.97 1.70 - 7.00 10*3/mm3 03/26/2025 4:30 [facility] Lymphocytes, Absolute 1.56 0.70 - 3.10 10*3/mm3 03/26/2025 4:30 PM EDT [facility] Monocytes, Absolute 0.47 0.10 - 0.90 10*3/mm3 03/26/2025 4:30 [facility] Eosinophils, Absolute 0.04 0.00 - 0.40 10*3/mm3 03/26/2025 4:30 PM EDT [facility] Basophils, Absolute 0.03 0.00 - 0.20 10*3/mm3 03/26/2025 4:30 PM EDT [facility] Immature Grans, Absolute 0.01 0.00 - 0.05 10*3/mm3 03/26/2025 4:30 PM EDT [facility] nRBC 0.0 0.0 - 0.2 /100 WBC 03/26/2025 4:30 PM EDT [facility] Blood Venipuncture / Unknown 03/26/2025 4:18 PM EDT 03/26/2025 4:24 PM EDT Pili Flores APRN LAB BLOOD ORDERABLES Final R esult Performing Organization Address City/[facility] Co de Phone Number [facility]
[address] [place] [address], [place] [phone] * Lipase (03/26/2025 4:18 PM EDT) Lipase 16 13 - 60 U/L 03/26/2025 4:47 PM EDT [facility] Blood Venipuncture / Unknown 03/26/2025 4:18 PM EDT 03/26/2025 4:24 PM EDT Pili Flores APRN LAB BLOOD ORDERABLES Final R esult Performing Organization Address [facility] de Phone Number [facility]
[address] [place] [address], [place] [phone] * Comprehensive Metabolic Panel (03/26/2025 4:18 PM EDT) Glucose 89 65 - 99 mg/dL 03/26/2025 4:47 PM EDT [facility] BUN 8.4 6.0 - 20.0 mg/dL 03/26/2025 4:47 PM EDT [facility] Creatinine 0.60 0.57 - 1.00 mg/dL 03/26/2025 4:47 PM EDT [facility] Sodium 137 136 - 145 mmol/L 03/26/2025 4:47 PM EDT [facility] Potassium 3.8 3.5 - 5.2 mmol/L 03/26/2025 4:47 PM EDT [facility] Chloride 103 98 - 107 mmol/L 03/26/2025 4:47 PM EDT [facility] CO2 26.0 22.0 - 29.0 mmol/L 03/26/2025 4:47 PM EDT [facility] Calcium 9.5 8.6 - 10.5 mg/dL 03/26/2025 4:47 PM EDT [facility] Total Protein 6.9 6.0 - 8.5 g/dL 03/26/2025 4:47 PM EDT [facility] Albumin 4.1 3.5 - 5.2 g/dL 03/26/2025 4:47 PM T [facility] ALT (SGPT) 7 1 - 33 U/L 03/26/2025 4:47 PM [facility] AST (SGOT) 10 1 - 32 U/L 03/26/2025 4:47 PM T [facility] Alkaline Phosphatase 47 39 - 117 U/L 03/26/2025 4:47 PM T [facility] Total Bilirubin 0.3 0.0 - 1.2 mg/dL 03/26/2025 4:47 PM T [facility] Globulin 2.8 gm/dL 03/26/2025 4:47 PM [facility] Comment:Calculated Result A/G Ratio 1.5 g/dL 03/26/2025 4:47 PM T [facility] BUN/Creatinine Ratio 14.0 7.0 - 25.0 03/26/2025 4:47 PM [facility] Anion Gap 8.0 5.0 - 15.0 mmol/L 03/26/2025 4:47 PM T [facility] eGFR 121.0 >60.0 mL/min/1.7 3 03/26/2025 4:47 PM [facility] Blood Venipuncture / Unknown 03/26/2025 4:18 PM EDT 03/26/2025 4:24 PM EDT Narrative [facility] - 03/26/2025 4:47 PM EDT GFR Categories in Chronic Kidney Disease (CKD) GFR Category GFR (mL/min/1.73) Interpretation G1 90 or greater Normal or high (1) G2 60-89 Mild decrease (1) G3a 45-59 Mild to moderate decrease G3b 30-44 Moderate to severe decrease G4 15-29 Severe decrease G5 14 or less Kidney failure (1)In the absence of evidence of kidney disease, neither GFR category G1 or G2 fulfill the criteria for CKD. eGFR calculation 2020 CKD-EPI creatinine equation, which does not include race as a factor us Pili Flores APRN LAB BLOOD ORDERABLES Final R esult [facility]
[address] [place] [address], * hCG, Quantitative, (03/26/2025 4:18 PM EDT) HCG Quantitative 36,415.00 mIU/mL 03/26/20 5:58 PM EDT [facility] Blood Venipuncture / Unknown 03/26/2025 4:18 PM EDT 03/26/2025 4:24 PM EDT Narrative [facility] - 03/26/2025 5:58 PM EDT HCG Ranges by Gestational Age Females - non- premenopausal </= 1mIU/mL HCG Females - postmenopausal </= 7mIU/mL HCG 3 Weeks 5.8 - 71.2 mIU/mL 4 Weeks 9.5 - 750 mIU/mL 5 Weeks 217 - 7,138 mIU/mL 6 Weeks 158 - 31,795 mIU/mL 7 Weeks 3,697 - 163,563 mIU/mL 8 Weeks 32,065 - 149,571 mIU/mL 9 Weeks 63,803 - 151,410 mIU/mL 10 Weeks 46,509 - 186,977 mIU/mL 12 Weeks 27,832 - 210,612 mIU/mL 14 Weeks 13,950 - 62,530 mIU/mL 15 Weeks 12,039 - 70,971 mIU/mL 16 Weeks 9,040 - 56,451 mIU/mL 17 Weeks 8,175 - 55,868 mIU/mL 18 Weeks 8,099 - 58,176 mIU/mL Pili Flores APRN LAB BLOOD ORDERABLES Final R esult [facility]
[address] [place] [address], documented in this encounter Visit Diagnoses Diagnosis Nausea and vomiting during - Primary Less than 8 weeks gestation of documented in this encounter Administered Medications Inactive Administered Medications - up to 3 most recent administrations Medication Order MAR Action Action Date Dose Rate Site ondansetron (ZOFRAN) injection 4 mg 4 mg, Intravenous, Once, On Wed03/26/25 at 1615, For 1 dose, If multiple N/V medications ordered, use in the following order: Ondansetron, Prochlorperazine, Promethazine. Use PO unless patient refuses or patient unable to swallow. Given 03/26/2025 4:24 PM EDT 4 mg sodium chloride 0.9 % bolus 1,000 mL 1,000 mL, Intravenous, at 2,000 mL/hr, Administer over 0.5 Hours, Once, On Wed03/26/25 at 1615, For 1 dose New Bag 03/26/2025 4:24 PM EDT 1,000 mL 2000 mL/hr sodium chloride 0.9 % flush 10 mL 10 mL, Intravenous, As Needed, Line Care, Starting on Wed03/26/25 at 1558 thiamine (B-1) injection 100 mg 100 mg, Intravenous, Once, On Wed03/26/25 at 1615, For 1 dose, Doses of up to 250mg, give over 1-2 minutes (IV push). Doses 250mg and above, give over 30 minutes. Given 03/26/2025 4:24 PM EDT 100 mg documented in this encounter Active and Recently Administered Medications Times are shown in EDT. Scheduled Medication Order 03/24/2025 03/25/2025 03/26/2025 ondansetron (ZOFRAN) injection 4 mg (COMPLETED) 4 mg, Intravenous, Once, On Wed03/26/25 at 1615, For 1 dose, If multiple N/V medications ordered, use in the following order: Ondansetron, Prochlorperazine, Promethazine. Use PO unless patient refuses or patient unable to swallow. 1624 (Given - Provid er: Prince Cohen RN) sodium chloride 0.9 % bolus 1,000 mL (COMPLETED) 1,000 mL, Intravenous, at 2,000 mL/hr, Administer over 0.5 Hours, Once, On Wed03/26/25 at 1615, For 1 dose 1624 (New Bag - Prov ider: Prince Cohen RN)1700 (Stopped - Provider: Prince oChen RN) thiamine (B-1) injection 100 mg (COMPLETED) 100 mg, Intravenous, Once, On Wed03/26/25 at 1615, For 1 dose, Doses of up to 250mg, give over 1-2 minutes (IV push). Doses 250mg and above, give over 30 minutes. 1624 (Given - Provid er: Prince Cohen RN) PRN Medication Order 03/24/2025 03/25/2025 03/26/2025 sodium chloride 0.9 % flush 10 mL(Linked Group 1) 10 mL, Intravenous, As Needed, Line Care, Starting on Wed03/26/25 at 1558 Linked Groups Order Group 1: Insert Peripheral IV (CANCELED) STAT, Once, On Wed03/26/25 at 1559, For 1 occurrence And sodium chloride 0.9 % flush 10 mLJump to med 10 mL, Intravenous, As Needed, Line Care, Starting on Wed03/26/25 at 1558 documented in this encounter Care Teams Electronic Imager Relationship Specialty Start Date End Date Provider, [place] [address] PCP - General 10/24/22 documented as of this encounter
--- OUTSIDE RECORDS SUMMARY | 2025-04-09 13:30 | XMS_ITS | Encounter Summary ---
Author Organization [facility] Address [address] [place] [address] Care Team Providers Care Hand Packager Name Role Phone Provider, No Known Primary Care Provider Unavail able Reason for Visit * Diagnostic Imaging (Routine) - Closed Specialty Diagnoses / Procedures Referred By Contact Referred To Contact Obstetrics and Gynecology Diagnoses Early stage of Procedures US Ob < 14 Weeks Single or First Gestation US Ob Transvaginal Raudel Henning MD [address] [address] Phone: tel: fax: [facility] [address] [address] Phone: tel: fax: Referral ID Status Reason Start Date Expiration Date Visits Re quested Visits Authorized [id number] Closed 04/05/2025 07/05/2026 1 1 Encounter Details Date Type Department Care Team (Latest Contact Info) Description 04/09/2025 1:30 PM EDT Ancillary Procedure [facility] [address] [address] Early stage of Social History Tobacco Use Types Packs/Day Years [...] on file documented as of this encounter Plan of Treatment Upcoming Encounters Date Type Department Care Team (Late st Contact Info) Description 05/07/2025 2:30 PM EDT Routine [facility] [address] [facility] [address] [place] [phone] Raudel Henning MD [address] [place] [address] [facility] [address] [place] [address] documented as of this encounter Procedures Procedure Name Priority Date/Time Associated Diagnosis Comments US OB < 14 WEEKS SINGLE OR FIRST GESTATION Routine 04/09/2025 2:02 PM EDT Early stage of documented in this encounter Results * US Ob < 14 Weeks Single or First Gestation (04/09/2025 2:02 PM EDT) Anatomical Region Laterality Modality Body Ultrasound 04/09/2025 2:43 PM EDT Narrative 04/09/2025 2:39 PM EDT PAT NAME: PARKER ZAMORANO [facility] REC#: [id number] DA: 1990 PAT GEND: F PAT TYPE: O EXAM RENETTA: [phone] REF PHYS RAUDEL HENNING Addendum Notice - Due to Application/Epic Interface issue, exam and impression (on 04/09/25 ) refinalized - NO Changes to clinical content Indication ======== Dating; Confirmation of intrauterine Comparison Studies There are no relevant prior studies to which this study is being compared Method ======= Voluson E6, Transabdominal ultrasound examination. View: Adequate view ========= Drummond . Number of fetuses: 1 Single intrauterine present Dating ====== Method of dating: based on the LMP LMP on: 02/06/2025 GA by LMP 8 w + 6 d YUMIKO by LMP: 11/13/2025 Ultrasound examination on: 04/09/2025 GA by U/S based upon: CRL GA by U/S 8 w + 2 d YUMIKO by U/S: 11/17/2025 Assigned: based on the LMP, selected on 04/09/2025 Assigned GA 8 w + 6 d Assigned YUMIKO: 11/13/2025 length 280 d Biometry Standard FHR 171 bpm CRL 18.0 mm 8w 2d 7% [facility] General Evaluation Cardiac activity present. Placenta Too early to evaluate. Amniotic fluid normal. Maternal Structures Uterus / Cervix Uterus: Visualized Cervix: Visualized Ovaries / Tubes / Adnexa Rt ovary: Visualized Rt ovary D1 26.1 mm Rt ovary D2 23.4 mm Rt ovary D3 20.3 mm Rt ovary Vol 6.5 cm Lt ovary: Visualized Lt ovary D1 18.5 mm Lt ovary D2 13.1 mm Lt ovary D3 14.90 mm Lt ovary Vol 1.9 cm Impression Single viable intrauterine with normal cardiac activity and biometry consistent with clinical dates Recommendation Follow-up as clinically indicated. Spray Machine Loader: Chloe Maria RT R, [facility] Physician: Raudel Henning MD Electronically signed by: Raudel Henning MD at: 14:39 Procedure Note Raudel Henning MD - 04/09/2025 PAT NAME: PARKER ZAMORANO [facility] REC#: [id number] DA: 1990 PAT GEND: F PAT TYPE: O EXAM RENETTA: [id number] REF PHYS RAUDEL HENNING Addendum Notice - Due to Application/Epic Interface issue, exam and impression (04/09/25 ) refinalized - NO Changes to clinical content Indication ======== Dating; Confirmation of intrauterine Comparison Studies There are no relevant prior studies to which this study is beingcompared Method ======= Voluson E6, Transabdominal ultrasound examination. View: Adequate view ========= Drummond . Number of fetuses: 1 Single intrauterine present Dating ====== Method of dating:based on the LMP LMP on:02/06/2025 GA by LMP8 w + 6 d YUMIKO by LMP:11/13/2025 Ultrasound examination on:04/09/2025 GA by U/S based upon:CRL GA by U/S8 w + 2 d YUMIKO by U/S:11/17/2025 Assigned:based on the LMP, selected on 04/09/2025 Assigned GA8 w + 6 d Assigned YUMIKO:11/13/2025 [id number] d Biometry Standard HEJ357 bpm CRL18.0 mm 8w 2d 7% [facility] General Evaluation Cardiac activity present. Placenta Too early to evaluate. Amniotic fluid normal. Maternal Structures Uterus / Cervix Uterus:Visualized Cervix:Visualized Ovaries / Tubes / Adnexa Rt ovary:Visualized Rt ovary D126.1 mm Rt ovary D223.4 mm Rt ovary D320.3 mm Rt ovary Vol6.5 cm Lt ovary:Visualized Lt ovary D118.5 mm Lt ovary D213.1 mm Lt ovary D314.90 mm Lt ovary Vol1.9 cm Impression Single viable intrauterine with normal cardiac activity andbiometry consistent with clinical dates Recommendation Follow-up as clinically indicated. Spray Machine Loader: Chloe Maria RT R, [facility] Physician: Raudel Henning MD Electronically signed by: Raudel Henning MD at: 14:39 Raudel Henning MD [facility] ORDERABLES Edited Result - Final documented in this encounter Visit Diagnoses Diagnosis Early stage of state, incidental documented in this encounter Care Teams Hand Packager Relationship Specialty Start Date End Date Provider, No Known [facility] [place] [address] PCP - General 10/24/22 documented as of this encounter
--- OUTSIDE RECORDS SUMMARY | 2025-04-09 14:10 | XMS_ITS | Encounter Summary ---
Author Organization [facility] Address [address] [place] [address] Care Team Providers Care Children'S Counselor Name Role Phone Provider, No Known Primary Care Provider Unavail able Reason for Visit * Reason Comments Initial Visit Ultrasound 8w6d Encounter Details Date Type Department Care Team (Late st Contact Info) Description 04/09/2025 2:10 PM EDT Initial [facility] [address] [phone] Raudel Henning MD [address] [place] [id number] GA: 8w6d Social History Tobacco Use Types Packs/Day Years [...] Sign Reading Time Taken Comments Blood Pressure 108/68 04/09/2025 2:07 PM EDT Pulse - - Temperature - - Respiratory Rate - - Oxygen Saturation - - Inhaled Oxygen Concentration - - Weight 84.4 kg (186 lb) 04/09/2025 2:07 PM EDT Height - - Body Mass Index 31.93 03/26/2025 3:12 PM EDT documented in this encounter Progress Notes * Fide Seals RN - 04/09/2025 2:10 PM EDTAddended by: FIDE SEALS on: 04/09/2025 03:45 PM Modules accepted: Orders * Fide Seals RN - 04/09/2025 2:10 PM EDTAddended by: FIDE SEALS on: 04/09/2025 03:46 PM Modules accepted: Orders * Raudel Henning MD - 04/09/2025 2:10 PM EDT Images from the original note were not included. Initial ob visit CC- Here for care of Tricia Wick is a 34 y.o. female, , who presents for her first obstetrical visit. Patient's last menstrual period was 02/06/2025 (exact date).. Her YUMIKO is 11/13/2025, by Last MenstrualPeriod. Current GA is 8w6d. She is currently taking Adderall 30mg QD for ADHD, Gabapentin 600 mg QD for degenerative disc disease, and Langlois 7.5mg for pain. She states she is unsure how to stop taking Adderall and Gabapentin asshe can't just stop those medications. She states she does not take Langlois unless pain is unbearable, but states she halves the tablet. She states she has only taken Langlois twice since being so far. She had last pap 10/2024 with APRN. Arya +Trich. She was treated Flaygl and took all prescription. She did not have FLORENCIO. Initial positive test date : 03/03/25, UPT Her periods are every 30 days Prior obstetric issues: none Patient's past medical history is significant for: none. Family history of genetic issues (includes FOB): none Prior infections concerning in (Rash, fever in last 2 weeks): No Varicella Hx - history of chicken pox Prior testing for Cystic Fibrosis Carrier or Sickle Cell Trait- no Prepregnancy BMI - Body mass index is 31.93 kg/m??. History of STD: yes Trich + 10/2024 Hx of HSV for patient or partner: no Ultrasound Today: yes OB History Para Term AB Living 7 5 4 1 1 5 SAB IAB Ectopic Molar Multiple Live Births 1 0 0 0 5 # Outcome Date GA Lbr Blaine/2nd Weight Sex Type Anes PTL Lv 7 Current 6 05/26/21 36w0d 2948 g (6 lb 8 oz) M CS-LTranv ORQUIDEA 5 SAB 2020 9w0d SAB 4 Term 02/23/18 37w0d 3062 g (6 lb 12 oz) M CS-LTranv ORQUIDEA 3 Term 04/10/14 38w0d 3147 g (6 lb 15 oz) M CS-LTranv Spinal N ORQUIDEA Comments: vacuum-assisted delivery due to severe abdominal adhesions Complications: Abdominal adhesions, [place] delivered by vacuum extraction 2 Term 11/11/10 39w0d 2948 g (6 lb 8 oz) F CS-LTranv Spinal N ORQUIDEA 1 Term 09/20/08 38w0d 3544 g (7 lb 13 oz) M CS-LTranv Spinal N ORQUIDEA Complications: Intolerance, Failure to progress in labor Additional Pertinent History Last Pap : 11/09/24 Result: ASCUS HPV: negative Last Completed Pap Smear Upcoming PAP SMEAR (Every 3 Years) Next due on 11/10/2027 11/09/2024 LIQUID-BASED PAP SMEAR WITH HPV GENOTYPING IF ASCUS (PRAFUL,COR,MAD) 04/09/2023 LIQUID-BASED PAP SMEAR WITH HPV GENOTYPING REGARDLESS OF INTERPRETATION (PRAFUL,COR,MAD) 07/14/2021 Done - approximate dating; negative, per patient History of abnormal Pap smear: yes - ASCUS 10/2024, HPV neg; Family history of uterine, colon, breast, or ovarian cancer: yes - Colon Ca- PGM and PGF; Feelings of Anxiety or Depression: yes - well controlled Zoloft Tobacco Usage?: No Alcohol/Drug Use?: NO Over the age of 35 at delivery: 35 yo at delivery Genetic Screening: desires cell free DNA High Risk Moderate Risk Low Risk History of preeclampsia or gestational hypertension- No Multifetal gestation- No Chronic hypertension- No Pregestational Diabetes- No Kidney Disease- No Autoimmune disease (I.e. lupus, antiphospholipid syndrome)- No Nulliparity- No Obesity (BMI>30)- Yes Family history of preeclampsia- No Black race- No Lower socio-economic status- No Age 35+ - No IVF- No History of SGA - No >10 year interpregnancy interval- No Prior uncomplicated term delivery and absence of any risk factors- No Total: 0 Total: 1 Total: 0 For this patient, low dose aspirin is not indicated and aspirin 81mg has not been prescribed. PMH Current Outpatient Medications: amphetamine-dextroamphetamine XR (ADDERALL XR) 30 MG 24 hr capsule, Take 1 capsule by mouth Every Morning, Disp: , Rfl: folic acid (FOLVITE) 400 MCG tablet, Take 1 tablet by mouth Daily., Disp: 90 tablet, Rfl: 1 gabapentin (NEURONTIN) 600 MG tablet, Take 1 tablet by mouth 3 (Three) Times a Day. (Patient takingdifferently: Take 1 tablet by mouth Daily.), Disp: , Rfl: HYDROcodone-acetaminophen (NORCO) 7.5-325 MG per tablet, 1 tablet As Needed for Mild Pain. (Patienttaking differently: 1 tablet As Needed for Mild Pain. Takes 0.5mg PRN), Disp: , Rfl: vitamin (, CLASSIC, vitamin) tablet, Take by mouth Daily., Disp: , Rfl: sertraline (ZOLOFT) 100 MG tablet, Take 2 tablets by mouth Daily., Disp: , Rfl: Past Medical History: Diagnosis Date ADHD Anemia Anxiety Depression History of miscarriage History of panic attacks most recent 2 months ago, as of 04/09/2023 Ovarian cyst PCB (post coital bleeding) Sciatica, left side Past Surgical History: Procedure Laterality Date APPENDECTOMY N/A 11/23/2023 Procedure: APPENDECTOMY LAPAROSCOPIC; Surgeon: Bairon Campbell MD; Location: [facility]; Service: General; Laterality: N/A; SECTION x5 DENTAL PROCEDURE implants DILATATION AND CURETTAGE 2019 post-MAB Review of Systems Review of Systems Patient Reports: excessive nausea Patient Denies:excessive vomiting and vaginal bleeding All systems reviewed and otherwise normal. I have reviewed and agree with the HPI, ROS, and historical information as entered above. Raudel Henning MD BP 108/68 Wt 84.4 kg (186 lb) LMP 02/06/2025 (Exact Date) BMI 31.93 kg/m?? The additional following portions of the patient's history were reviewed and updated as appropriate: allergies, current medications, past family history, past medical history, past social history, past surgical history, and problem list. Physical Exam General: well developed; well nourished no acute distress mentation appropriate Chest/Respiratory: No labored breathing, normal respiratory effort, normal appearance, no respiratory noises noted Heart: not examined Thyroid: not examined Breasts: Not performed. Abdomen: soft, non-tender; no masses no umbilical or inguinal hernias are present no hepato-splenomegaly Pelvis: Clinical staff was present for exam External genitalia: normal appearance of the external genitalia including Bartholin's and [place]'s glands. : urethral meatus normal; urethra normal: Vaginal: normal pink mucosa without prolapse or lesions. Cervix: normal appearance. Assessment and Plan Problem List Items Addressed This Visit None Visit Diagnoses care, antepartum, unspecified - Primary Relevant Orders Obstetric Panel HIV-1 / O / 2 Ag / Antibody Urine Culture - Urine, Urine, Clean Catch Urinalysis With Microscopic - Urine, Clean Catch Hemoglobin A1c Varicella Zoster Antibody, IgG Thyroid [place] Profile Inheritest (R) CF/SMA Panel - Blood, Iron Profile Ferritin Chlamydia trachomatis, Neisseria gonorrhoeae, Trichomonas vaginalis, PCR - Swab, Cervix Attention deficit hyperactivity disorder (ADHD), unspecified ADHD type Relevant Medications amphetamine-dextroamphetamine XR (ADDERALL XR) 30 MG 24 hr capsule Other Relevant Orders ToxAssure Flex 24, Ur - Trichomonas infection Relevant Orders Chlamydia trachomatis, Neisseria gonorrhoeae, Trichomonas vaginalis, PCR - Swab, Cervix at 8w6d Reviewed routine care with the office and educational materials given Lab(s) Ordered Discussed options for genetic testing including first trimester nuchal translucency screen, geneticdisease carrier testing, quadruple screen, and NIPT Discontinue the use of all non-medicinal drugs and chemicals Nausea/Vomiting - she does not desire medications at this time. Discussed conservative ways to helpwith nausea. Patient is on vitamins Recommend limiting weight gain to 15 to 20 pounds in . Discussed carbohydrate control. hgb A1C today TFT today Discussed risks of medications. Recommend discontinuing Discussed increased risk of delivery. Considering tubal Return in about 4 weeks (around 05/07/2025) for Care. Raudel Henning MD 04/09/2025 documented in this encounter Plan of Treatment Upcoming Encounters Date Type Department Care Team (Late st Contact Info) Description 05/07/2025 2:30 PM EDT Routine [facility] [address] [phone] Raudel Henning MD [address] [address] Scheduled Orders Name Type Priority Associated Diagnoses Orde r Schedule Obstetric Panel Lab Routine care, antepartum, unspecified Ordered: 04/09/2025 HIV-1 / O / 2 Ag / Antibody Lab Routine care, antepartum, unspecified Ordered: 04/09/2025 Urine Culture - Urine, Urine, Clean Catch Microbiology Routine care, antepartum, unspecified Ordered: 04/09/2025 Urinalysis With Microscopic - Urine, Clean Catch Lab Panel Routine care, antepartum, unspecified Ordered: 04/09/2025 Hemoglobin A1c Lab Routine care, antepartum, unspecified Ordered: 04/09/2025 Varicella Zoster Antibody, IgG Lab Routine care, antepartum, unspecified Ordered: 04/09/2025 Thyroid [place] Profile Lab Routine care, antepartum, unspecified Ordered: 04/09/2025 Inheritest (R) CF/SMA Panel - Blood, Lab Routine care, antepartum, unspecified Ordered: 04/09/2025 Iron Profile Lab Routine care, antepartum, unspecified Ordered: 04/09/2025 Ferritin Lab Routine care, antepartum, unspecified Ordered: 04/09/2025 ToxAssure Flex 24, Ur - Lab Routine Attention deficit hyperactivity disorder (ADHD), unspecified ADHD type Ordered: 04/09/2025 documented as of this encounter Procedures Procedure Name Priority Date/Time Associated Diagnosis Comments CHLAMYDIA TRACHOMATIS, NEISSERIA GONORRHOEAE, TRICHOMONAS VAGINALIS, PCR Routine 04/09/2025 12:00 AM EDT care, antepartum, unspecified Trichomonas infection documented in this encounter Results * Chlamydia trachomatis, Neisseria gonorrhoeae, Trichomonas vaginalis, PCR - Swab, Cervix (2:00 AM EDT) Chlamydia trachomatis, FAY Negative Negative [facility] Gonococcus by FAY Negative Negative [facility] Trichomonas vaginosis Negative Negative [facility] Swab Cervix uteri structure / Unknown 04/09/2025 04/09/2025 Comment:Swab Release to felipe e Barbra [facility] - 04/11/2025 5:36 AM EDT Performed at: - [address] [id number] Sheet Metal Assembler And Riveter: Ania Mane MD, Phone: [phone] us Raudel Henning MD MICROBIOLOGY - GENERAL ORDERABL ES Final Result [facility] [address] [place] [address], [place] [phone] [facility] [address] [place] [address], documented in this encounter Visit Diagnoses Diagnosis care, antepartum, unspecified - Primary Attention deficit hyperactivity disorder (ADHD), unspecified ADHD type Trichomonas infection Unspecified trichomoniasis History of delivery affecting documented in this encounter Care Teams Children'S Counselor Relationship Specialty Start Date End Date Provider, [place] [address] PCP - General 10/24/22 documented as of this encounter
--- OUTSIDE RECORDS SUMMARY | 2025-04-10 11:45 | XMS_ITS | Encounter Summary ---
Author Organization [facility] Address [address] [place] [address] Care Team Providers Care Stamps Or Coins Salesperson Name Role Phone Provider, No Known Primary Care Provider Unavail able Encounter Details Date Type Department Care Team (Late st Contact Info) Description 04/10/2025 11:45 AM EDT Lab [facility] [address] [facility] [address] [place] [phone] Social History Tobacco Use Types Packs/Day Years [...] Info) Description 05/07/2025 2:30 PM EDT Routine [facility] [address] [facility] [address] [place] [phone] Raudel Henning MD [address] [facility] [address] [place] [address] documented as of this encounter Visit Diagnoses Not on filedocumented in this encounter Care Teams Stamps Or Coins Salesperson Relationship Specialty Start Date End Date Provider, No Known [facility] [place] [address] PCP - General 10/24/22 documented as of this encounter
[2025-04-25 16:34] VITALS: BP 116/79; PULSE 90; RESP 18; TEMP 36.7; O2SAT 100; BMI 31.7
--- OUTSIDE RECORDS SUMMARY | 2025-04-25 16:41 | XMS_ITS | Encounter Summary ---
Author Organization [facility] Address [address] [place] [address] Care Team Providers Care House Carpenter Name Role Phone Provider, No Known Primary Care Provider Unavail able Encounter Details Date Type Department Care Team (Late st Contact Info) Description 04/12/2025 Telephone [facility] [address] [phone] Trini Cardenas MD [address] [place] [address] Social History Tobacco Use Types Packs/Day Years [...] on file documented as of this encounter Miscellaneous Notes * Telephone Encounter - Jerson Palafox RN - 04/12/2025 9:20 AM EDT Error in opening chart. PA was approved yesterday. documented in this encounter Plan of Treatment Upcoming Encounters Date Type Department Care Team (Late st Contact Info) Description 05/07/2025 2:30 PM EDT Routine [facility] [address] [facility] [address] [place] [address] Raudel Henning MD [address] [place] [address] [place] [address] documented as of this encounter Visit Diagnoses Not on filedocumented in this encounter Care Teams House Carpenter Relationship Specialty Start Date End Date Provider, No Known [facility] [place] [address] PCP - General 10/24/22 documented as of this encounter
--- OUTSIDE RECORDS SUMMARY | 2025-04-25 16:41 | XMS_ITS | Encounter Summary ---
Author Organization [facility] Address [address] [place] [address] Care Team Providers Care Life Insurance Agent Name Role Phone Provider, No Known Primary Care Provider Unavail able Encounter Details Date Type Department Care Team (Late st Contact Info) Description 04/11/2025 Telephone [facility] OBGYN 1700 [facility] [address] [place] [phone] Raudel Henning MD 1700 [facility] [address] [place] [address] Social History Tobacco Use Types Packs/Day Years [...] 10/29 Potentially Unsafe Housing Conditions Not on kimime e 11/23/2023 Disabilities Answer Date Recorded Difficulty [...] Telephone Encounter - Jerson Palafox RN - 04/11/2025 11:54 AM EDT (Garcia: [id number]) LISSETH Rx #: [id number] Drug ACCRUFeR 30MG capsulesMedImpact [place] Medicaid ePA Form Outcome Approved today by [place] Medicaid MedImpact 2017 The request has been approved. The authorization is effective from 04/11/2025 to 10/12/2025, as long as the member is enrolled in their current health plan. A written notification letter will follow with additional details. Effective Date: 04/11/2025 Authorization Expiration Date: 10/12/2025 documented in this encounter Plan of Treatment Upcoming Encounters Date Type Department Care Team (Late st Contact Info) Description 05/07/2025 2:30 PM EDT Routine [facility] OBGYN [address] [address] Raudel Henning MD [address] [place] [address] [place] [id number] documented as of this encounter Visit Diagnoses Not on filedocumented in this encounter Care Teams Life Insurance Agent Relationship Specialty Start Date End Date Provider, No Known [facility] [place] [address] PCP - General 10/24/22 documented as of this encounter
--- OUTSIDE RECORDS SUMMARY | 2025-04-25 16:42 | XMS_ITS | Encounter Summary ---
Author Organization [facility] Address [address] [place] [address] Care Team Providers Care Talent Sourcer Name Role Phone Provider, No Known Primary Care Provider Unavail able Encounter Details Date Type Department Care Team (Late st Contact Info) Description 04/11/2025 Results Follow-Up [facility] OBGYN [address] [address] Raudel Henning MD 1700 [place] [address] Social History Tobacco Use Types Packs/Day Years [...] Info) Description 05/07/2025 2:30 PM EDT Routine [facility] OBGYN [address] [address] Raudel Henning MD [address] [place] [address] documented as of this encounter Visit Diagnoses Diagnosis Iron deficiency anemia during - Primary Bacteriuria during documented in this encounter Care Teams Talent Sourcer Relationship Specialty Start Date End Date Provider, No Known [facility] [place] [address] PCP - General 10/24/22 documented as of this encounter
--- OUTSIDE RECORDS SUMMARY | 2025-04-25 16:42 | XMS_ITS | Encounter Summary ---
Author Organization [facility] Address [address] [place] [address] Care Team Providers Care General Maintenance Technician Name Role Phone Provider, No Known Primary Care Provider Unavail able Encounter Details Date Type Department Care Team (Late st Contact Info) Description 03/26/2025 Telephone [facility] OBGYN 1700 [facility] [address] [place] [phone] Raudel Henning MD 1700 [facility] [address] [place] [address] Social History Tobacco Use Types Packs/Day Years [...] encounter Miscellaneous Notes * Telephone Encounter - Geneva Caraballo RN - 03/26/2025 2:17 PM EDT NOB appt scheduled for 04/09/25. Reports nausea and vomiting for 24 without being able to keep anything down. Advised pt to reports to ED receive IV fluids to prevent dehydration. Verbalized understanding. Will send SwiftPayMD(TM) by [employer] message with B6 and Unisom combination. * Telephone Encounter - Yumiko Higuera RegSched Rep - 03/26/2025 2:10 PM EDT LMP 06/10 scheduled for nob, is having extreme nausea and vomiting and wanted to see about getting worked in today or if she should go to the ER please advise documented in this encounter Plan of Treatment Upcoming Encounters Date Type Department Care Team (Late st Contact Info) Description 05/07/2025 2:30 PM EDT Routine [facility] OBGYN [address] [place] [phone] Raudel Henning MD [address] [place] [address] documented as of this encounter Visit Diagnoses Not on filedocumented in this encounter Care Teams General Maintenance Technician Relationship Specialty Start Date End Date Provider, [place] [address] PCP - General 10/24/22 documented as of this encounter
--- OUTSIDE RECORDS SUMMARY | 2025-04-25 16:42 | XMS_ITS | Clinical Summary ---
Author Organization [facility] [place] [id number] Care Team Providers Care Lens Polisher Hand Name Role Phone Fifi Klein APRN Primary Care Provider [phone] Leigh Knox APRN Unavailable [phone] Allergies No known active allergies Medications Adderall [...] [facility]-HIV Screening 1990 [facility]-Hepatitis C Screening 1990 [facility]-Infant/Child/Adol SDOH Screenings 1990 [facility]-Varicella Vaccines (1 of 2 - 13+ 2-dose series) 2003 [facility]- SDOH Screenings 2008 [facility]-Adult SDOH Screenings 2008 [facility]-DTaP,Tdap,and Td Vaccine s (1 - Tdap) 2009 [facility]-Pneumococcal Vaccine: Pediatrics (0 to 5 Years) and At-Risk Patients (6 to 49 Years) (1 of 2 - PCV) 2009 HPV Vaccines (1 - 3-dose SCD M series) 2017 [facility]-HPV/Cotest 2020 RDN-DURBZ-95 Vaccine (1 - season) 2024 [facility]-Influenza Vaccine [...] complete this topic Insurance MEDICAID Care Teams Lens Polisher Hand Relationship Specialty Start Date End Date Fifi Klein APRN [address] [place] [address] PCP - General 03/20/24 Leigh Knox APRN [address] [facility] [address] [place] [address] Nurse Practitioner Urology 05/08/24
--- OUTSIDE RECORDS SUMMARY | 2025-04-25 16:42 | XMS_ITS | Encounter Summary ---
Author Organization [facility] Address [address] [place] [address] Care Team Providers Care Fare Collector Name Role Phone Provider, No Known Primary Care Provider Unavail able Encounter Details Date Type Department Care Team (Late st Contact Info) Description 04/11/2025 Results Follow-Up [facility] OBGYN [address] [address] Raudel Henning MD 1700 [place] [address] Social History Tobacco Use Types Packs/Day Years [...] Info) Description 05/07/2025 2:30 PM EDT Routine [facility] OBGYN [address] [address] Raudel Henning MD [address] [place] [address] documented as of this encounter Visit Diagnoses Not on filedocumented in this encounter Care Teams Fare Collector Relationship Specialty Start Date End Date Provider, No Known [facility] [place] [address] PCP - General 10/24/22 documented as of this encounter
--- OUTSIDE RECORDS SUMMARY | 2025-04-25 16:42 | XMS_ITS | Clinical Summary ---
Author Organization [facility] Address [address] [facility] [address] [place] [address] Phone Care Team Providers Care Pet Care Associate Name Role Phone Fifi Klein APRN Primary Care Physician [phone] Conditions or Problems Problem Name Problem Code Onset Date Status Entry Date Provider Comment Standard Description Annotate Body mass index (BMI) 30.0-30.9; adult Z68.30 (ICD-10-CM) 05/10 Active 05/10 Eduarda Naranjo APRN PMHNP Body mass index [BMI] 30.0-30.9, adult Body mass index (BMI) 29.0-29.9; adult Z68.29 (ICD-10-CM) 03/03 Correction 03/03 Eduarda Naranjo APRN PMHNP Body mass index [BMI] 29.0-29.9, adult Major depression, recurrent, moderate 08417779 (SNOMED CT) 05/03 Active 05/03 Eduarda Naranjo APRN PMHNP Moderate recurrent major depression Generalized anxiety disorder 79546337 (SNOMED CT) 05/03 Active 05/03 Eduarda Naranjo APRN PMHNP Generalized anxiety disorder High risk medication management 850200984 (SNOMED CT) 05/03 Active 05/03 Eduarda Naranjo APRN PMHNP High risk drug monitoring ADHD, combined 46080438 (SNOMED CT) 05/03 Active 05/03 Eduarda Naranjo APRN PMHNP Attention deficit hyperactivity disorder, combined type Back pain, acute 661181697 (SNOMED CT) 03/16 Active 03/16 Fifi Mingua HUMAN PERFORMANCE CONSULTANT Backache Pelvic pain, acute 870470081 (SNOMED CT) 03/16 Active 03/16 Fifi Mingua HUMAN PERFORMANCE CONSULTANT Acute pelvic pain History of frequent urinary tract infections 55099154574 07 (SNOMED CT) 03/16 Active 03/16 Fifi Mingua HUMAN PERFORMANCE CONSULTANT History of urinary tract infection Anemia 403146313 (SNOMED CT) 03/09 Active 03/09 Fifi Mingua HUMAN PERFORMANCE CONSULTANT Anemia Nausea and vomiting 16802903 (SNOMED CT) 03/03 Active 03/06 Fifi Mingua HUMAN PERFORMANCE CONSULTANT Nausea and vomiting Tobacco User 364347174 (SNOMED CT) 03/03 Active 03/06 Fifi Mingua HUMAN PERFORMANCE CONSULTANT Tobacco user Screening, cervical cancer 147435114 (SNOMED CT) 03/03 Active 03/03 Fifi Mingua HUMAN PERFORMANCE CONSULTANT Screening for malignant neoplasm of cervix Hx of anxiety depression 970017358 (SNOMED CT) 03/03 Active 03/03 Fifi Mingua HUMAN PERFORMANCE CONSULTANT H/O: anxiety state Acute Urinary Tract Infection (UTI) 571074024 (SNOMED CT) 03/03 Active 03/03 Fifi Mingua HUMAN PERFORMANCE CONSULTANT Acute urinary tract infection Body mass index (BMI) 29.0-29.9; adult Z68.29 (ICD-10-CM) 03/03 Removed 03/03 Fifi Mingua HUMAN PERFORMANCE CONSULTANT Body mass index [BMI] 29.0-29.9, adult Counseling for nutrition Z71.3 (ICD-10-CM) 03/03 Inactive 03/03 Fifi Mingua HUMAN PERFORMANCE CONSULTANT Dietary counseling and surveillance High risk medication management 453936036 (SNOMED CT) 03/03 Active 03/03 Fifi Mingua HUMAN PERFORMANCE CONSULTANT High risk drug monitoring Hematuria 95887157 (SNOMED CT) 03/03 Active 03/03 Fifi Mingua HUMAN PERFORMANCE CONSULTANT Blood in urine Establish care or get acquainted [id number] [facility] 03/03 Active 03/03 Fifi Manciaa HUMAN PERFORMANCE CONSULTANT Procedure carried out on subject Medications Medication Instructions Start Date Stop Date Generic Name NDC Provider SERTRALINE HCL 100 MG TABS Take 2 tablet by mouth once a day sertraline 95409954911 Eduarda Naranjo EMANUEL PMHNP GABAPENTIN 600 MG TABS Take 1 1/2 tablet by mouth once a day gabapentin 07188018568 Eduarda Naranjo EMANUEL PMHNP AMPHETAMINE-DEX TROAMPHETAMINE 30 MG TABS take 1 tab by mouth at 1 pm dextroamphetamine- amphetamine 53285549345 Eduarda Naranjo APRN PMHNP ADDERALL XR 30 MG CL31A-RWE Take 1 capsule by mouth every morning dextroamphetamine- amphetamine 89803735159 Eduarda Naranjo APRN PMHNP IRON 325 (65 Fe) MG TABS Take 1 tablet by mouth once a day TAKE WITH ORANGE JUICE ON EMPTY STOMACH ferrous sulfate 46904791877 Fifi Blanchea HUMAN PERFORMANCE CONSULTANT PYRIDIUM 100 MG TABS Take 1 tablet by mouth three times a day as directed for 3 days. FOR URINARY DISCOMFORT. phenazopyridine 27410289187 Fifi Blanchea HUMAN PERFORMANCE CONSULTANT PROMETHAZINE HCL 12.5 MG TABS Take 1 tablet by mouth every eight to twelve hours promethazine 05380370117 Fifi Manciaa HUMAN PERFORMANCE CONSULTANT MACROBID 100 MG CAPS Take 1 capsule by mouth twice a day for 5 days nitrofurantoin monohyd/m-cryst 29386282449 Fifi Blanchea HUMAN PERFORMANCE CONSULTANT Medications Administered No information available. Allergies, Adverse Reactions, Alerts Observed no known allergies at Results Date Name Value Unit Range Flag Description Office Visit: EST CARE/UTI GLUCOSE, URN negative Glucose [Mass/volume] in Urine by Test strip BILIRUBIN UR negative Bilirub in.total [Presence] in Urine by Test strip KETONES URN negative Ketones [Mass/volume] in Urine by Test strip SPEC GR URIN 1.015 Specific gravity of Urine by Test strip BLOOD UR DIP 3+ blood in urine (hemoglobin) by dipstick PH URINE 6.0 pH of Urine by Test strip PROTEIN, URN 2+ protein, urine, semiquantitative (dipstick) UROBILINOGEN 0.2 Urobilin ogen [Presence] in Urine by Test strip NITRITE URN positive Nitrite [Presence] in Urine by Test strip WBC DIPSTK U 2+ Leukocyt e esterase [Presence] in Urine by Test strip APPEARANCE U cloudy Appearan ce of Urine UA COLOR orange Color of Uri ne LABS ORDERED Urine Dip Auto 45877 Laboratory tests ordered Lab Report: LIPID PANEL WITH REFLEX TO DIRECT LDL, HDL CHOLESTEROL, TRIG ... HGBA1C 5.5 % OF TOTAL HGB % <5.7 N Hemoglobin A1c/Hemoglobin, total in Blood - % TSH 0.66 u[iU]/mL N Thyrotropin [Units/volume] in Serum or Plasma BASO % MANU 0.5 % N basophils as percent of blood leukocytes, manual count EOS % MANU 1.8 % N eosinophil s as percent of blood leukocytes, manual count MONOCYTE % 6.3 % N Monocytes/ 100 leukocytes in Blood by Automated count LYMPH% P BLD 18.6 % N lymphocy adrien as percent of blood leukocytes PMN % 72.8 % N Neutrophils/1 00 leukocytes in Blood by Automated count ABS BASOS 39 {Cells}/uL 0-200 N Basophil s [#/volume] in Blood ABS EOS 139 {Cells}/uL 15-500 N Eosinophil s [#/volume] in Blood ABS MONOS 485 {Cells}/uL 200-950 N Monocyte s [#/volume] in Blood ABSLYMPHCT 1432 {Cells}/uL 850-3900 N Lympho cytes [#/volume] in Blood ABS NEUTROPH 5606 CELLS/UL 10*3/uL 9790-5739 N Neutrophils [#/volume] in Blood MPV 10.2 fL 7.5-12.5 N Platelet vincenzo n volume [Entitic volume] in Blood by Waldo-Viet PLATELETK/UL 265 THOUSAND/UL 10*3/uL 140-400 N platelet count RDW 14.8 % 11.0-15.0 N Erythrocyte distribution width [Ratio] by Automated count OL-MCHC 30.6 g/dL 32.0-36.0 L mean corpus cular hemoglobin concentration, rbc MCH 25.1 pg 27.0-33.0 L MCH [Entiti c mass] by Automated count MCV 82.0 fL 80.0-100.0 N MCV [Entit ic volume] by Automated count HCT 37.3 % 35.0-45.0 N Hematocrit [Volume Fraction] of Blood by Automated count HGB 11.4 g/dL 11.7-15.5 L Hemoglobin [Mass/volume] in Blood RBC M/UL 4.55 MILLION/UL 10*6/uL 3.80-5.10 N red blood count WBC CT BLOOD 7.7 10*3/uL 3.8-10.8 N leukocy te count, blood SGPT (ALT) 13 U/L 6-29 N Alanine aminotransferase [Enzymatic activity/volume] in Serum or Plasma SGOT (AST) 17 U/L 10-30 N Aspartate aminotransferase [Enzymatic activity/volume] in Serum or Plasma ALK PHOS 55 U/L 31-125 N Alkaline dixie sphatase [Enzymatic activity/volume] in Blood BILI TOTAL 0.3 mg/dL 0.2-1.2 N Bilirubin. total [Mass/volume] in Serum or Plasma A/G RATIO 1.5 (calc) 1.0-2.5 N Albumin/ Globulin [Mass Ratio] in Serum or Plasma GLOBULIN TOT 2.9 G/DL (CALC) g/dL 1.9-3.7 N Globulin [Mass/volume] in Serum ALBUMIN EOP 4.3 g/dL 3.6-5.1 N Albumin [ Mass/volume] in Serum or Plasma by Electrophoresis PROTEIN, TOT 7.2 g/dL 6.1-8.1 N Protein [Mass/volume] in Serum or Plasma CALCIUM 9.4 mg/dL 8.6-10.2 N Calcium [Moles/volume] in Serum or Plasma CO2 29 mmol/L 20-32 N Carbon dioxid e, total [Moles/volume] in Venous blood CHLORIDE BLD 102 mmol/L 98-110 N chloride , blood POTASSIUM 4.4 mmol/L 3.5-5.3 N Potassium [Moles/volume] in Serum or Plasma SODIUM 137 mmol/L 135-146 N Sodium [Moles /volume] in Serum or Plasma BUN/CREAT SEE NOTE: (calc) 6-22 Urea nitrogen/Creatinine [Mass Ratio] in Serum or Plasma CREATININE 0.78 mg/dL 0.50-0.97 N Creatini ne [Mass/volume] in Serum or Plasma BUN 8 mg/dL 7-25 N Urea nitrogen [Mass/volume] in Serum or Plasma GLUCOSE SER 88 mg/dL 65-99 N Glucose [ Mass/volume] in Serum or Plasma IRON SATUR % 7 % (CALC) % 16-45 L Iron saturation [Mass Fraction] in Serum or Plasma IRON 31 ug/dL 40-190 L Iron [Mass/vo lume] in Serum or Plasma NON-HDL CHOL 132 MG/DL (CALC) mg/dL <130 H cholesterol, non -HDL, total CHOL/HDL % 3.2 (calc) <5.0 N cholest coleen/HDL ratio, serum, percent LDL 115 MG/DL (CALC) mg/dL H Cholesterol in L DL [Mass/volume] in Serum or Plasma - mg/dL TRIGLYC TOT 74 mg/dL <150 N Triglycer feli [Mass/volume] in Serum or Plasma - mg/dL HDL 61 mg/dL >OR = 50 N Cholesterol in HDL [Mass/volume] in Serum or Plasma - mg/dL CHOLESTEROL 193 mg/dL <200 N Cholester ol [Mass/volume] in Serum or Plasma - mg/dL Append: Orders Only HPV RESULT NEGATIVE Human pap illoma virus identified in Specimen Lab Report: DRUG MONITOR, PA ALEX 1, SCREEN, URINE, DRUG MONITOR, BUP, SCR ... PHENCYCLIDIN NEGATIVE ng/mL <25 N Phencyc lidine [Presence] in Urine OXYCODONE NEGATIVE <100 N Oxycodone urine screening METHADONEURN NEGATIVE <100 N Methado ne [Presence] in Urine by Screen method MARIJUANAURN POSITIVE <20 A Marijua na, cannabinoid screen Urine COCAINE UR NEGATIVE <150 N cocaine, urine BENZODIAZ UR NEGATIVE <100 N Benzodi azepines [Presence] in Urine AMPHETAMI UR POSITIVE <500 A Ampheta mines [Presence] in Urine Plan of Care Type Date Detail Referral Urology Referral General Urology, [address] [place] [address], [address] Floor, [address], [place], [place] Referral Urology Referral General Urology, [address] [place] [address], [address] Floor, [address], [place], [place] Pending order T1 Drug Screen S TANDARD-Urine w/o Confirmation Pending order T1 CBC with diff Pending order T1 CMP Pending order T1 Lipid Panel Pending order T1 HGBA1c Pending order T1 TSH reflex to free T4 Pending order T1 TIBC w iron l evel Pending order T1 Urine Culture Pending order Urine Dip Auto 8 1003 Pending order T1 CBC with diff Pending Order exclud ed from report: Pending order T1 CMP Pending Order exclud ed from report: Pending order T1 Lipid Panel Pending Order exclud ed from report: Pending order T1 HGBA1c Pending Order exclud ed from report: Pending order T1 TSH reflex to free T4 Pending Order exclud ed from report: Procedures Code Procedure Name Date Entry Date CPT-89280 Developmental testing; limited CPT-1159F Medication list docu mented in medical record [id number] Current every day smoker 22/06/18 4004F Patient screened for tobacco use and received tobacco cessation intervention [id number] Smoking cessation education [id number] Giving encouragement to exercise CPT-3074F Most recent systolic blood pressure <130 mm Hg CPT-3078F Most recent diastoli c blood pressure <80 mm Hg [id number] Current every day smoker 23/05/11 4004F Patient screened for tobacco use and received tobacco cessation intervention [id number] Smoking cessation education [id number] Smoking cessation education [facility] G1543 T1 Drug Screen STAND MICHAEL-Urine w/o Confirmation 4004F Patient screened for tobacco use and received tobacco cessation intervention [id number] Medication Reconciliation [facility]-[id number] Medication Reconciliation [facility]-[id number] SNOMED-CT [id number] PHQ-9 Refused 03/03 CPT-3074F Most recent systolic blood pressure <130 mm Hg CPT-3078F Most recent diastoli c blood pressure <80 mm Hg CPT-1159F Medication list docu mented in medical record CPT-1160F Review of all medica tions by a prescribing practitioner [facility] 6399 T1 CBC with diff [facility] 93729 T1 CMP [facility] 62461 T1 Lipid Panel [facility] 496 T1 HGBA1c [facility] 84626 T1 TSH reflex to free T4 12/04/04 [id number] Current every day smoker 20 22/03/05 4004F Patient screened for tobacco use and received tobacco cessation intervention [id number] Smoking cessation education [facility] 6399 T1 CBC with diff [facility] 01074 T1 CMP [facility] 59997 T1 Lipid Panel [facility] 496 T1 HGBA1c [facility] 03248 T1 TSH reflex to free T4 12/04/04 [facility] 7573 T1 TIBC w iron level [facility] 395 T1 Urine Culture Vital Signs Date Name Value Unit Description BMI (Body Mass Index) 30.45 kg/m2 Bod y Mass Index (Ratio) BP Diastolic 70 mm[Hg] blood pressu re, diastolic BP Systolic 111 mm[Hg] blood pressur e, systolic BSA (Body Surface Area) 1.99 b axel surface area Heart Rate 90 /min pulse rate Height 66 [in_us] height E&M Height 167.64 cm height in cent imeters E&M Weight Measured 85.45 kg weight in kilograms E&M Weight Measured 188 [lb_av] weight E& M Weight Measured 188 [lb_av] weight E& M Body Temperature 98.4 [degF] temperat ure E&M Body Temperature 36.89 Tanika temperat ure in centigrade E&M Immunizations No information available. Advance Directives No information available.
--- OUTSIDE RECORDS SUMMARY | 2025-04-25 16:42 | XMS_ITS | Encounter Summary ---
Author Organization [facility] Address [address] [place] [address] Care Team Providers Care Production Grader Name Role Phone Provider, No Known Primary Care Provider Unavail able Encounter Details Date Type Department Care Team (Late st Contact Info) Description 04/16/2025 Results Follow-Up [facility] OBGYN [address] [address] Raudel Henning MD [address] [place] [address] Social History Tobacco Use Types Packs/Day Years [...] Info) Description 05/07/2025 2:30 PM EDT Routine [facility] OBGYN [address] [address] Raudel Henning MD [address] [place] [address] documented as of this encounter Visit Diagnoses Not on filedocumented in this encounter Care Teams Production Grader Relationship Specialty Start Date End Date Provider, No Known [facility] [address] PCP - General 10/24/22 documented as of this encounter
--- OUTSIDE RECORDS SUMMARY | 2025-04-25 16:42 | XMS_ITS | Encounter Summary ---
Author Organization [facility] Address [address] [place] [address] Care Team Providers Care Immigration Judge Name Role Phone Provider, No Known Primary Care Provider Unavail able Encounter Details Date Type Department Care Team (Late st Contact Info) Description 11/13/2024 Results Follow-Up [facility] OBGYN [address] [facility] [address] [place], [place] [phone] Arya Batista, EARLY EDUCATION TEACHER [address] [facility] [address] [place] [address] Social History Tobacco Use Types Packs/Day Years [...] Feels Unsafe at Home or Work/School no 11/23/2023 Feels Threatened by Someone no 10/29 Does Anyone Try to Keep You From Having Contact with Others or Doing Things Outside Your Home? no 11/23/2023 Physical Signs of Abuse Present no 11/23/2023 Housing Stability Answer Date Recorded Current Living Arrangements home 10/29 Potentially Unsafe Housing Conditions Not on kimmie e 11/23/2023 Disabilities Answer Date Recorded Difficulty Concentrating, Remembering or Making Decisions no 11/23/2023 Difficulty Managing Errands Independently no 11/23/2023 Comments No Sex and Gender Information Value Date Recorded Sex Assigned at Not on file Legal Sex Female 3:46 PM EDT Gender Identity Not on file Sexual Orientation Not on file documented as of this encounter Miscellaneous Notes * Telephone Encounter - Christina Tafoya RN - 11/15/2024 8:08 AM EDT Flagyl prescription had not yet been sent; prescribed and sent to pharmacy of patient's choice documented in this encounter Plan of Treatment Upcoming Encounters Date Type Department Care Team (Late st Contact Info) Description 05/07/2025 2:30 PM EDT Routine [facility] OBGYN [address] [facility] [address] [place] [phone] Raudel Henning MD [address] [place], [place] [id number] documented as of this encounter Visit Diagnoses Not on filedocumented in this encounter Care Teams Immigration Judge Relationship Specialty Start Date End Date Provider, No Known [facility] [place] [address] PCP - General 10/24/22 documented as of this encounter
--- OUTSIDE RECORDS SUMMARY | 2025-04-25 16:42 | XMS_ITS | Encounter Summary ---
Author Organization [facility] Address [address] [place] [address] Care Team Providers Care Log Hauler Name Role Phone Provider, No Known Primary Care Provider Unavail able Encounter Details Date Type Department Care Team (Latest Contact Info) Description 03/26/2025 Travel Social History Tobacco Use Types Packs/Day Years [...] on file documented as of this encounter Functional Status * Calculated C-SSRS Risk Score (Lifetime/Recent) Answer Date of Assessment Author No Risk Indicated 03/26/2025 4:10 PM EDT Evy Cohen RN * [place] Suicide Severity Rating Scale (Screener/Recent Self-Report) Question Answer Date of Assessment Author 1. Wish to be (Past 1 Month) No 025 4:10 PM EDT Prince Cohen RN 2. Non-Specific Active Suici trey Thoughts (Past 1 Month) No 03/26/2025 4:10 PM EDT Prince Cohen RN 6. Suicidal Behavior (Lifetime) No 4:10 PM EDT Prince Cohen RN documented as of this encounter Plan of Treatment Upcoming Encounters Date Type Department Care Team (Late st Contact Info) Description 05/07/2025 2:30 PM EDT Routine [facility]YN [address] [facility] [address] [place] [phone] Raudel Henning MD [address] [place] [address] documented as of this encounter Visit Diagnoses Not on filedocumented in this encounter Care Teams Log Hauler Relationship Specialty Start Date End Date Provider, No Known [facility] [place] [address] PCP - General 10/24/22 documented as of this encounter
--- OUTSIDE RECORDS SUMMARY | 2025-04-25 16:42 | XMS_ITS | Encounter Summary ---
Author Organization [facility] Address [address] [place] [address] Care Team Providers Care Returned Goods Inspector Name Role Phone Provider, No Known Primary Care Provider Unavail able Encounter Details Date Type Department Care Team (Late st Contact Info) Description 04/24/2025 Telephone [facility] OBGYN [address] [facility] [address] [place] [phone] Raudel Henning MD [address] [facility] [address] [place] [address] Social History Tobacco Use Types Packs/Day Years [...] encounter Miscellaneous Notes * Telephone Encounter - Melissa Ha RN - 04/24/2025 3:50 PM EDT Returned patient's call. Reviewed all lab results and recommendations. She has seen results and Dr. Henning's messages. States Accrufer was delivered yesterday. She has not picked up antibiotics yet; strongly encouraged her to start them JUAN. She v/u and agreed. * Telephone Encounter - Yumiko Higuera RegSched Rep - 04/24/2025 3:36 PM EDT Patient lvm * Telephone Encounter - Melissa Ha RN - 04/24/2025 3:17 PM EDT Patient of Dr. Henning; @ 11w 0d. CARA 04/09/25 for NOB visit. Attempted to return patient's call. Left voice message to call us back. * Telephone Encounter - Yumiko Higuera RegSched Rep - 04/24/2025 1:09 PM EDT Patient returned call to go over labs documented in this encounter Plan of Treatment Upcoming Encounters Date Type Department Care Team (Late st Contact Info) Description 05/07/2025 2:30 PM EDT Routine [facility] OBGYN [address] [facility] [address] [place] [phone] Raudel Henning MD [address] [place] [facility] [address] [place] [address] documented as of this encounter Visit Diagnoses Not on filedocumented in this encounter Care Teams Returned Goods Inspector Relationship Specialty Start Date End Date Provider, [place] [address] PCP - General 10/24/22 documented as of this encounter
--- OUTSIDE RECORDS SUMMARY | 2025-04-25 16:42 | XMS_ITS | Clinical Summary ---
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 Active gabapentin (NEURONTIN) 600 MG tablet Take 1 tablet by mouth 3 (Three) Times a Day. Active folic acid (FOLVITE) 400 MCG tablet Take 1 tablet by mouth Daily. 90 tablet 1 11/15/19 25 Active amphetamine-de xtroamphetamin e XR (ADDERALL XR) 30 MG 24 hr capsule Take 1 capsule by mouth Every Morning 02/02/20 25 Active vitamin (, CLASSIC, vitamin) tablet Take by mouth Daily. Active HYDROcodone-ac etaminophen (NORCO) 7.5-325 MG per tablet 1 tablet As Needed for Mild Pain. 03/15/20 25 Active Ferric Maltol (ACCRUFeR) 30 MG capsuleIndicat ions:Iron deficiency anemia during Take 1 capsule by mouth 2 (Two) Times a Day. Take 1 hour before or 2 hours after meals. 60 capsule 5 04/11/20 25 Active amphetamine-de xtroamphetamin e (ADDERALL) 20 MG tablet Take 1 tablet by mouth Daily. 025 Discontinued(Du plicate order) Ferric Maltol (ACCRUFeR) 30 MG capsule Take 1 capsule by mouth 2 (Two) Times a Day. 60 capsule 5 11/15/19 25 025 Discontinued(*T herapy completed) amoxicillin-cl avulanate (AUGMENTIN) 875-125 MG per tabletIndicati ons:Bacteriuri a during Take 1 tablet by mouth 2 (Two) Times a Day for 7 days. 14 tablet 04/16/20 25 025 Discontinued amoxicillin-cl avulanate (AUGMENTIN) 875-125 MG per tabletIndicati ons:Bacteriuri a during Take 1 tablet by mouth 2 (Two) Times a Day for 7 days. 14 tablet 04/16/20 25 025 Active Problems Problem Noted Date Diagnosed Date Bacteriuria during 04/16/2025 Iron deficiency anemia during 04/11/20 History of delivery affecting 04/09/2025 Acute appendicitis 11/23/2023 IUD threads lost 04/09/2023 Overview (04/09/2023): ParaGard IUD visualized on ultrasound 03/19/2023. Strings unable to be visualized in the office on 04/09/2023. Given dysmenorrhea, patient desires removal, will schedule for hysteroscopic removal in the OR. Tobacco use 04/09/2023 Mass of upper inner quadrant of right breast 06/2023 Overview (04/09/2023): 2 cm mobile breast mass located in the right breast, 2 cm from the nipple at 2:00. Plan right breast ultrasound. Estimated Date of Delivery Comme nts Yes 11/13/2025 Based on last me nstrual period of 02/06/2025 (Exact Date) Resolved Problems Problem Noted Date Diagnosed Date Resolved Date Dysuria 04/09/2023 04/09/2023 Encounters Date Type Department Care Team Description 04/24/2025 Telephone [facility] OBGYN [address] [place] [address] Raudel Avila MD 04/16/2025 Results Follow-Up [facility] O[facility]YN [address] [place] [address] Raudel Avila MD 04/12/2025 Telephone [facility] OBGYN [address] [facility] [address] [place] [phone] Trini Cardenas MD 04/11/2025 Telephone [facility] OBGYN [address] [facility] [address] [place] [phone] Raudel Avila MD 04/11/2025 Results Follow-Up [facility] OBGYN [address] [facility] [address] [place] [phone] Raudel Avila MD 04/11/2025 Results Follow-Up [facility] OBGYN [address] [facility] [address] [place] [phone] Raudel Avila MD 04/10/2025 11:45 AM EDT Lab [facility] OBGYN [address] [facility] [address] [place] [phone] 04/09/2025 2:10 PM EDT Initial [facility] OBGYN [address] [facility] [address] [place] [phone] Raudel Avila MD GA: [id number] 04/09/2025 1:30 PM EDT Ancillary Procedure [facility] OBG[facility] [address] [facility] [address] [place] [phone] Early stage of 04/09/2025 Travel 03/26/2025 3:51 PM EDT - 03/26/2025 6:39 PM EDT Emergency [facility] [address] [place] [address] Holli Butler MD Nausea and vomiting during (Primary Dx); Less than 8 weeks gestation of Discharge Disposition: Home or Self Care 03/26/2025 Travel 03/26/2025 Telephone [facility] OBGYN [address] [facility] [address] [place] [address] Raudel Avila MD from Last 3 Months Family History Medical History Relation Name Comments Arthritis Maternal Grandmother Vesna alcantara Hypertension Maternal Grandmother Vesna alcantara Nephrolithiasis Maternal Grandmother Vesna alcantara Asthma Mother Dayanna pizano Diabetes Mother Dayanna pizano Hyperlipidemia Mother Dayanna pizano Irritable bowel syndrome Mother Dayanna pizano Nephrolithiasis Mother Dayanna pizano Colon cancer Paternal Grandmother Breast cancer Neg Hx Ovarian cancer Neg Hx Uterine cancer Neg Hx Relation Name Status Comments Maternal Grandmother Vesna alcantara Mother Dayanna pizano Paternal Grandmother Social History Tobacco Use Types Packs/Day Years [...] Pressure 108/68 04/09/2025 2:07 PM EDT Pulse 73 03/26/2025 3:12 PM EDT Temperature 36.8 C (98.2 F) 03/26/2025 3:12 PM EDT Respiratory Rate 16 03/26/2025 3:12 PM EDT Oxygen Saturation 100% 03/26/2025 3:12 PM EDT Inhaled Oxygen Concentration - - Weight 84.4 kg (186 lb) 04/09/2025 2:07 PM EDT Height 162.6 cm (5' 4 ) 03/26/2025 3:12 PM EDT Body Mass Index 31.93 03/26/2025 3:12 PM EDT Plan of Treatment Upcoming Encounters Date Type Department Care Team (Late st Contact Info) Description 05/07/2025 2:30 PM EDT Routine [facility] OBGYN [address] [address] Raudel Avila MD [address] [place] [phone] Health Maintenance Due Date Last Done Comments Pneumococcal Vaccine 0-49 (1 of 2 - PCV) 2009 TDAP/TD VACCINES (1 - Tdap) 2009 ANNUAL PHYSICAL 11/06/2022 COVID-19 Vaccine (1 - 2023- season) 2024 INFLUENZA VACCINE 05/30/2025 RSV Vaccine - Adults (1 - Ri sk 1-dose series) 09/18/2025 Annual Gynecologic Pelvic an d Breast Exam 11/10/2025 11/09/2024 PAP SMEAR 11/10/2027 11/09/2024, 03/30, 07/14/2021 HEPATITIS C SCREENING Completed 04/10/2025, 025 Medical Devices Implanted Type Area Store Lead Device Identifier Shelf Expiration Date Model / Serial / Lot Stplr Tiss [id number] Strl 1p/U - [id number] Implanted:Qty : 1 on 11/23/2023 by Bairon Campbell MD at [facility] Implant N/A: Abdomen [employer] DIV OF J AND J 08/29/2026 [id number] / / [id number] Reload Center Line Endopath Gst 45mm Michael - [id number] Implanted:Qty : 1 on 11/23/2023 by Bairon Campbell MD at [facility] Implant N/A: Abdomen [employer] DIV OF J AND J 02/26/2026 [id number] / / [id number] Procedures Procedure Name Priority Date/Time Associated Diagnosis Comments URINALYSIS AND MICROSCOPIC Routine 04/10/2025 12:35 PM EDT INHERITEST(R) CF/SMA PANEL Routine 04/10/2025 12:35 PM EDT OBSTETRIC PANEL Routine 04/10/2025 12:35 PM EDT FERRITIN Routine 04/10/2025 12:35 PM EDT THYROID CASCADE PROFILE Routine 04/10/2025 12:35 PM EDT IRON PROFILE Routine 04/10/2025 12:35 PM EDT VARICELLA ZOSTER ANTIBODY, IGG Routine 04/10/2025 12:35 PM EDT ~MICROSCOPIC EXAMINATION Routine 04/10/2025 12:35 PM EDT HEMOGLOBIN A1C Routine 04/10/2025 12:35 PM EDT HIV-1/O/2 ANTIGEN/ANTIBODY Routine 04/10/2025 12:35 PM EDT URINE CULTURE Routine 04/10/2025 12:35 PM EDT [id number] PLUS CORE+SCA+ESS Routine 04/10/2025 12:01 PM EDT care, antepartum, unspecified US OB < 14 WEEKS SINGLE OR FIRST GESTATION Routine 04/09/2025 2:02 PM EDT Early stage of CHLAMYDIA TRACHOMATIS, NEISSERIA GONORRHOEAE, TRICHOMONAS VAGINALIS, PCR Routine 04/09/2025 12:00 AM EDT care, antepartum, unspecified Trichomonas infection POCT PEFORM URINE STAT 03/26/2025 5:12 PM EDT URINALYSIS, MICROSCOPIC ONLY STAT 03/26/2025 5:10 PM EDT URINALYSIS W/ CULTURE IF INDICATED STAT 03/26/2025 5:10 PM EDT URINE CULTURE STAT 03/26/2025 5:10 PM EDT CBC AND DIFFERENTIAL STAT 03/26/2025 4:18 PM EDT CBC WITH AUTO DIFFERENTIAL STAT 03/26/2025 4:18 PM EDT LIPASE STAT 03/26/2025 4:18 PM EDT COMPREHENSIVE METABOLIC PANEL STAT 03/26/2025 4:18 PM EDT HCG, QUANTITATIVE, STAT 03/26/2025 4:18 PM EDT LIQUID-BASED PAP SMEAR WITH HPV GENOTYPING IF ASCUS, [facility] (PRAFUL,COR,MAD) Routine 11/09/2024 3:18 PM EDT Screening for STDs (sexually transmitted diseases) Routine gynecological examination from Last 3 Months or Most Recently Relevant to Health Maintenance Results * Inheritest (R) CF/SMA Panel - , (04/10/2025 12:35 PM EDT) Genes Comment [facility] Comment:2 genes Ethnicity Comment [facility] Comment:Not Provided Specimen Type Comment [facility] Comment:Whole Blood Indication: Comment [facility] Comment:Carrier Test / Scree erma Result Comment [facility] Comment:NEGATIVE Interpretation Comment [facility] Comment: Negative Results Disorders (Gene) Result Interpretation Cystic fibrosis NEGATIVE This result reduces, CFTR [id number] but does not eliminate, the risk to be a carrier. Risk: NOT at an increased risk for an affected . Spinal muscular NEGATIVE : 2 This result reduces, atrophy SMN1 copies of but does not NM_000344.4 SMN1; eliminate, the risk c.*3+80T>G to be a carrier. risk variant Risk: NOT at an not present. increased risk for an affected . RECOMMENDATIONS Comment [facility] Comment: If the above result is positive, genetic counseling is recommended to discuss the potential clinical and/or reproductive implications, as well as recommendations for testing family members and, when applicable, this individual's partner. Genetic counseling services are available. To access [facility] please visit [email or web address] or call [phone] ([phone]). Comments: Comment [facility] Comment: This interpretation is based on the clinical information provided and the current understanding of the molecular genetics of the disorder(s) tested. Information about the disorder(s) tested is available at [email or web address]. METHODS AND LIMITATIONS Comment [facility] Comment: Next-generation Sequencing (NGS): Genomic regions of interest are selected using the SafeNet(R) hybridization capture method and sequenced via the [employer] Online NGS platform. Sequencing reads are aligned to the human genome reference GRCh37/hg19 build. Regions of interest include coding exons, intron/exon junctions (typically +/- 20 nucleotides) and additional genomic regions with known significant pathogenic variants. Analytical sensitivity is estimated to be >99% for single nucleotide variants and small insertions/deletions. Variant detection is performed by [employer] and in-house algorithms. Single exon deletions or duplications can be detected in the CFTR gene with estimated overall analytical sensitivity >99%. Precise breakpoints are not reported. Single-exon deletions or duplications are not detected in some cases due to CNV size limitations, or due to isolated data quality variation or intrinsic sequence properties. Confirmatory testing by orthogonal technologies may include Stephanie sequencing, or MLPA analysis.Poly T/TG tract variants are reported only when classified as associated with CFTR-related disorders or when R117H is also present. Reported variants: Pathogenic and likely pathogenic variants are reported for all tests. Variants of uncertain significance are not reported for any Inheritest carrier panel or for Cystic Fibrosis Full-gene Carrier Screen. Variants of uncertain significance are reported with all GeneSeq PLUS test codes unless VUS opt out is selected. Benign and likely benign variants are not reported. Variants are specified using the numbering and nomenclature recommended by the Human Genome Variation Society (HGVS, http://www.hgvs.org/). Variant classification and confirmation are consistent with ACMG standards and guidelines (Honeycutt, PMID:28656467; Eryn, PMID:07904228). Detailed variant classification information and variant reevaluation are available upon request. Spinal muscular atrophy: The copy number of SMN1 exon 7 is assessed relative to internal standard reference genes by quantitative polymerase chain reaction (qPCR). A mathematical algorithm calculates 0, 1, 2 and 3 copies with statistical confidence. In specimens and specimens with 0 or 1 copies, the primer and probe binding sites are sequenced to rule out variants that could interfere with copy number analysis. SMN2 copy number is assessed by digital droplet PCR analysis relative to an internal standard reference gene in samples with no copies of SMN1. For carrier screening, when two copies of SMN1 are detected, allelic discrimination qPCR targeting c.*3+80T>G in SMN1 is performed. Limitations: Technologies used do not detect germline mosaicism and do not rule out the presence of large chromosomal aberrations including rearrangements and gene fusions, or variants in regions or genes not included in this test, or possible inter/intragenic interactions between variants, or repeat expansions. Variant classification and/or interpretation may traveler changer time if more information becomes available. False positive or false negative results may occur for reasons that include: rare genetic variants, sex chromosome abnormalities, pseudogene interference, blood transfusions, bone marrow transplantation, somatic or tissue-specific mosaicism, mislabeled samples, or erroneous representation of family relationships. This test was developed and its performance characteristics determined by [employer]. It has not been cleared or approved by the Food and Drug Administration. [employer] is a subsidiary of [employer] using the brand [employer] Inheritest(R) and GeneSeq(R) are registered service ruffin of [employer] References Comment [facility] Comment: Jatinder DAN, Shaun Elam S et al. Screening for autosomal recessive and X-linked conditions during and preconception: a practice resource of the [place] College of Medical Genetics and Genomics (ACMG). Mag Med 23, 6327 (2020). PMID: [id number] Disorders Tested Comment [facility] Comment: Cystic fibrosis (1 gene). 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 [place], [address] Technical [employer]ation [employer] Genetic Humera Gupta, PhD, Pixate, [employer] analysis [facility] [place] [place], [address] Professional [id number], Pedro Luis Gupta, PhD, component Genetic [employer], [facility], [place], [address] Electronically released by Pavithra Ly, PhD, [employer] 04/10/2025 12:3 5 PM EDT 04/10/2025 Narrative [facility] (AMBULATORY) - 04/23/2025 1:09 PM EDT Performed at: 01 - [employer] [facility] [place], [place] [id number] International Specialist: Humera Gupta PhD, Phone: [phone] us Raudel Avila MD GENETIC TESTING Final Result [facility] ([facility]) [address] [place] [address], [facility] [address] [place] [address], * Microscopic Examination - (04/10/2025 12:35 PM EDT) WBC, UA None seen 0 - 5 /hpf [facility] RBC, UA 0-2 0 - 2 /hpf [facility] Epithelial Cells (non renal) 0-10 0 - 10 /hpf [facility] Casts None seen None seen /lpf [facility] Bacteria, UA None seen None seen/Few [facility] 04/10/2025 12:3 5 PM EDT 04/10/2025 Narrative [facility] (AMBULATORY) - 04/11/2025 8:12 AM EDT Performed at: [address] [place] [address] [place] [id number] International Specialist: El Escamilla PhD, Phone: [phone] Raudel Avila MD URINE ORDERABLES Final Result Performing Organization Address [facility]/ZIP Co de Phone Number [facility] [address] [place] [address], [facility] [address] [place] [address], [place] [phone] * HIV-1 / O / 2 Ag / Antibody (04/10/2025 12:35 PM EDT) [facility] HIV Screen 4th Gen w/RFX (Reference) Non Reactive Non Reactive [facility] Comment: HIV-1/HIV-2 antibodies and HIV-1 p24 antigen were NOT detected. There is no laboratory evidence of HIV infection. HIV Negative 04/10/2025 12:3 5 PM EDT 04/10/2025 Comment: Narrative [facility] (AMBULATORY) - 04/11/2025 6:36 AM EDT Performed at: - [facility] [address] [place] [id number] International Specialist: El Escamilla PhD, Phone: [phone] us Raudel Avila MD LAB BLOOD ORDERABLES Final Resu lt [facility] [address] [place] [address], [place] [phone] [facility] [address] [place] [address], [place] [phone] * Thyroid Dunn Profile (04/10/2025 12:35 PM EDT) TSH 0.746 0.450 - 4.500 uIU/mL [facility] Comment: No apparent thyroid disorder. Additional testing not indicated. In rare instances, Secondary Hypothyroidism as well as Subclinical Hypothyroidism have been reported in some patients with normal TSH values. 04/10/2025 12:3 5 PM EDT 04/10/2025 [facility] (AMBULATORY) - 04/11/2025 9:36 AM EDT Performed at: [address] [id number] International Specialist: El Escamilla PhD, Phone: [phone] Raudel Avila MD LAB BLOOD ORDERABLES Final Resu lt Performing Organization Address [facility] de Phone Number [facility]) [address] [place] [address], [place] [phone] [facility] [address] [place] [address], [place] [phone] * Iron Profile w/o Ferritin (04/10/2025 12:35 PM EDT) TIBC 383 250 - 450 ug/dL [facility] UIBC 318 131 - 425 ug/dL [facility] Iron 65 27 - 159 ug/dL [facility] Iron Saturation 17 15 - 55 % [facility] 04/10/2025 12:3 5 PM EDT 04/10/2025 [facility] (AMBULATORY) - 04/11/2025 9:10 AM EDT Performed at: [address] [place] [id number] International Specialist: El Escamilla PhD, Phone: [phone] us Raudel Avila MD LAB BLOOD ORDERABLES Final Resu lt Performing Organization Address [facility] Co de Phone Number [facility]) [address] [place] [address], [place] [phone] [facility] [address] [place] [address], [place] [phone] * (ABNORMAL) Obstetric Panel (04/10/2025 12:35 PM EDT) Hepatitis B Surface Ag Negative Negative [facility] Hep C Virus Ab Non Reactive Non Reactive [facility] Comment: HCV antibody alone does not differentiate between previously resolved infection and active infection. Equivocal and Reactive HCV antibody results should be followed up with an HCV RNA test to support the diagnosis of active HCV infection. RPR Non Reactive Non Reactive [facility] Rubella Antibodies, IgG <0.90(L) Immune >0.99 index [facility] Comment: Non-immune <0.90 Equivocal 0.90 - 0.99 Immune >0.99 ABO Type O [facility] Rh Factor Positive [facility] Comment: Please note: Prior records for this patient's ABO / Rh type are not available for additional verification. Antibody Screen Negative Negative [facility] WBC 6.3 3.4 - 10.8 x10E3/uL [facility] RBC 4.14 3.77 - 5.28 x10E6/uL [facility] Hemoglobin 12.3 11.1 - 15.9 g/dL [facility] Hematocrit 38.3 34.0 - 46.6 % [facility] MCV 93 79 - 97 fL [facility] MCH 29.7 26.6 - 33.0 pg [facility] MCHC 32.1 31.5 - 35.7 g/dL [facility] RDW 13.7 11.7 - 15.4 % [facility] Platelets 249 150 - 450 x10E3/uL [facility] Neutrophil Rel % 69 Not Estab. % [facility] Lymphocyte Rel % 24 Not Estab. % [facility] Monocyte Rel % 6 Not Estab. % [facility] Eosinophil Rel % 1 Not Estab. % [facility] Basophil Rel % 0 Not Estab. % [facility] Neutrophils Absolute 4.3 1.4 - 7.0 x10E3/uL [facility] Lymphocytes Absolute 1.5 0.7 - 3.1 x10E3/uL [facility] Monocytes Absolute 0.4 0.1 - 0.9 x10E3/uL [facility] Eosinophils Absolute 0.1 0.0 - 0.4 x10E3/uL [facility] Basophils Absolute 0.0 0.0 - 0.2 x10E3/uL [facility] Immature Granulocyte Rel % 0 Not Estab. % [facility] Immature Grans Absolute 0.0 0.0 - 0.1 x10E3/uL [facility] 04/10/2025 12:3 5 PM EDT 04/10/2025 Narrative [facility] ([facility]) - 04/11/2025 10:36 AM EDT Performed at: [address] [id number] International Specialist: El Escamilla PhD, Phone: [phone] Raudel Avila MD LAB BLOOD ORDERABLES Final Resu lt [facility] [place] [facility]) [address] [place] [address], [place] [phone] [facility] [address] [place] [address], * (ABNORMAL) Urinalysis With Microscopic - (04/10/2025 12:35 PM EDT) Specific [place], UA 1.014 1.005 - 1.030 [facility] pH, UA 8.5(H) 5.0 - 7.5 [facility] Color, UA Yellow Yellow [facility] Appearance, UA Clear Clear [facility] Leukocytes, UA Negative Negative [facility] Protein Trace Negative/Tra ce [facility] Glucose, UA Negative Negative [facility] Ketones Negative Negative [facility] Blood, UA Negative Negative [facility] Bilirubin, UA Negative Negative [facility] Urobilinogen, UA 0.2 0.2 - 1.0 mg/dL [facility] Nitrite, UA Negative Negative [facility] Microscopic Examination Comment [facility] Comment:Microscopic follows if indicated. Microscopic Examination See below: [facility] Comment:Microscopic was berna cated and was performed. 04/10/2025 12:3 5 PM EDT 04/10/2025 Narrative [facility]) - 04/11/2025 8:12 AM EDT Performed at: - [place] [id number] [place], [place] [id number] International Specialist: El Escamilla PhD, Phone: [phone] us Raudel Avila MD URINE ORDERABLES Final Result Performing Organization Address [facility] de Phone Number [facility] [address] [place] [address], [facility] [address] [place] [address], * Urine Culture - , (04/10/2025 12:35 PM EDT) Only the most recent of2 resultswithin the time period is included. Urine Culture Final report [facility] Result 1 Comment [facility] Comment: Viridans streptococcus group 25,000-50,000 colony forming units per mL Susceptibility not normally performed on this organism. 04/10/2025 12:3 5 PM EDT 04/10/2025 Comment:SHELLY Narrative [facility] (AMBULATORY) - 04/14/2025 3:35 AM EDT Performed at: - [facility] [address] [place], [place] [id number] International Specialist: El Escamilla PhD, Phone: [phone] us Raudel Avila MD MICROBIOLOGY - GENERAL ORDERABL ES Final Result Performing Organization Address [facility] de Phone Number [facility]) [address] [place] [address], [place] [phone] [facility] [address] [place] [address], [place] [phone] * Varicella Zoster Antibody, IgG (04/10/2025 12:35 PM EDT) Varicella IgG Reactive Non Reactive [facility] Comment: Please note reference interval change A Reactive result is considered evidence of immunity to VZV. Reactive indicates that VZV IgG was detected consistent with previous infection and/or vaccination. A Non Reactive result indicates that VZV IgG was not detected suggesting that immunity has not been acquired. 04/10/2025 12:3 5 PM EDT 04/10/2025 Narrative [facility] (AMBULATORY) - 04/11/2025 8:12 AM EDT Performed at: [address] [place] [address] [id number] International Specialist: El Escamilla PhD, Phone: [phone] us Raudel Avila MD LAB BLOOD ORDERABLES Final Resu lt Performing Organization Address [facility] Co de Phone Number [facility] (AMBULATORY) [address] [place] [address], [facility] [address] [place] [address], [place] [phone] * Hemoglobin A1c (04/10/2025 12:35 PM EDT) Hemoglobin A1C 5.2 4.8 - 5.6 % [facility] Comment: Prediabetes: 5.7 - 6.4 Diabetes: >6.4 Glycemic control for adults with diabetes: <7.0 04/10/2025 12:3 5 PM EDT 04/10/2025 Comment: Narrative [facility] (AMBULATORY) - 04/11/2025 7:09 AM EDT Performed at: [address] [place] [address] [id number] International Specialist: El Escamilla PhD, Phone: [phone] us Raudel Avila MD LAB BLOOD ORDERABLES Final Resu lt Performing Organization Address [facility] Co de Phone Number [facility] (AMBULATORY) [address] [place] [address], [place] [phone] [facility] [address] [place] [address], [place] [phone] * (ABNORMAL) Ferritin (04/10/2025 12:35 PM EDT) Ferritin 10(L) 15 - 150 ng/mL [facility] 04/10/2025 12:3 5 PM EDT 04/10/2025 Narrative [facility] (AMBULATORY) - 04/11/2025 9:36 AM EDT Performed at: 01 - [facility] [address] [facility], [place], [place] [id number] International Specialist: El Escamilla PhD, Phone: [phone] us Raudel Avila MD LAB BLOOD ORDERABLES Final Resu lt [facility] (AMBULATORY) [address] [place] [address], [place] [phone] [facility] [address] [place] [address], [place] [phone] * [id number] PLUS Core+SCA+ESS - Blood, (04/10/2025 12:01 PM EDT) Gestation Drummond [facility] Fraction 16% [facility] Gestational Age >9: Yes [facility] Result Negative [facility] International Specialist Comments Comment [facility] Comment: This specimen showed an expected representation of chromosome 21, 18 and 13 material. Clinical correlation is suggested. Approved By Comment [facility] Comment:Vicente Coombs MD , PhD, Director, [employer] TRISOMY 21 (DOWN SYNDROME) Negative [facility] TRISOMY 18 (SMALLS SYNDROME) Negative [facility] TRISOMY 13 (PATAU SYNDROME) Negative [facility] SEX Comment [facility] Comment:Consistent with Fema le MONOSOMY X (GOODEN SYNDROME) Not Detected [facility] XYY (BRAY SYNDROME) Not Detected [facility] XXY (KLINEFELTER SYNDROME) Not Detected [facility] XXX (TRIPLE X SYNDROME) Not Detected [facility] 22Q11 DELETION (DIGEORGE) Not Detected [facility] 15Q11 DELETION (PW ANGELMAN) Not Detected [facility] 11Q23 DELETION (ISABELL) Not Detected [facility] 8Q24 DELETION (ISABELLE-GIEDION) Not Detected [facility] 5P15 DELETION (Cri-du-chat) Not Detected [facility] 4P16 DELETION (CARPIO-HIRSCHHORN) Not Detected [facility] 1P36 DELETION SYNDROME Not Detected [facility] TRIOSOMY 16 Not Detected [facility] TRISOMY 22 Not Detected [facility] NEGATIVE PREDICTIVE VALUE Note [facility] Comment: The Negative Predictive Value (NPV) for trisomy 21, 18, and 13 is greater than 99%. The NPV for SCA and ESS cannot be calculated as SCA and ESS are only reported when an abnormality is detected. POSITIVE PREDICTIVE VALUE N/A [facility] About The Test Comment [facility] Comment: The MaterniT(R) 21 PLUS laboratory-developed test (LDT) analyzes circulating cell-free DNA from a maternal blood sample. This test is used for screening purposes and not diagnostic. Clinical correlation is recommended. Validation data on twin pregnancies is limited and the ability of this test to detect aneuploidy in higher multiple gestations has not yet been validated. Test Method Comment [facility] Comment: Circulating cell-free DNA was purified from the plasma component of maternal blood. The extracted DNA was then converted into a genomic DNA library for aneuploidy analysis of chromosomes 21, 18, and 13 via next generation sequencing.[1] Optional findings based on the test order include sex chromosome aneuploidy (SCA)[2], and enhanced sequencing series (ESS)[3], which will only be reported on as an additional finding when an abnormality is detected. SCA testing includes information on X and Y representation, while ESS testing includes deletions in selected regions (22q, 15q, 11q, 8q, 5p, 4p, 1p) and trisomy of chromosomes 16 and 22. Performance Comment [facility] Comment: The performance characteristics of the MaterniT(R) 21 PLUS laboratory-developed test (LDT) have been determined in a clinical validation study with women at increased risk for chromosomal aneuploidy.[1-4] PERFORMANCE CHARACTERISTICS Note [facility] [employer] Comment: ! Sex ! Accuracy: 99.4% ! ! ! ! Region (associated syndrome) ! Est. Sens# ! Est. Spec ! ! ! ! Trisomy 21 (Down Syndrome) ! 99.1% ! 99.9% ! ! ! ! Trisomy 18 (Smalls Syndrome) ! >99.9% ! 99.6% ! ! ! ! Trisomy 13 (Patau Syndrome) ! 91.7% ! 99.7% ! ! ! ! Sex Chromosome Aneuploidies## ! 96.2% ! 99.7% ! ! ! * As reported in ISCA database nstd37 [https://www.ncbi.nlm.nih.gov/dbvar/studies/nstd37/ ] # Estimated Sensitivity. Sensitivity estimated across the observed size distribution of each syndrome [per ISCA database nstd37] and across the range of fractions observed in routine clinical NIPT. Actual sensitivity can also be influenced by other factors such as the size of the event, total sequence counts, amplification bias, or sequence bias. ## Drummond gestation only. Limitations of the Test Comment [facility] Comment: While the results of these tests are highly reliable, discordant results, including inaccurate sex prediction, may occur due to placental, maternal, or mosaicism or neoplasm; vanishing twin; prior maternal organ transplant; or other causes. These tests are screening tests and not diagnostic; they do not replace the accuracy and precision of diagnosis with CVS or amniocentesis. A patient with a positive test result should be referred for genetic counseling and offered invasive diagnosis for confirmation of test results.[5] The results of this testing, including the benefits and limitations, should be discussed with a qualified healthcare provider. management decisions, including termination of the , should not be based on the results of these tests alone. The healthcare provider is responsible for the use of this information in the management of their patient. Sex chromosomal aneuploidies are not reportable for known multiple gestations. A negative result does not ensure an unaffected nor does it exclude the possibility of other chromosomal abnormalities or defects which are not a part of these tests. An uninformative result may be reported, the causes of which may include, but are not limited to, insufficient sequencing coverage, noise or artifacts in the region, amplification or sequencing bias, or insufficient fraction. These tests are not intended to identify pregnancies at risk for neural tube defects or ventral wall defects. Testing for whole chromosome abnormalities (including sex chromosomes) and for subchromosomal abnormalities could lead to the potential discovery of both and maternal genomic abnormalities that could have major, minor, or no, clinical significance. Evaluating the significance of a positive or a non-reportable result may involve both invasive testing and additional studies on the mother. Such investigations may lead to a diagnosis of maternal chromosomal or subchromosomal abnormalities, which on occasion may be associated with benign or malignant maternal neoplasms. These tests may not accurately identify triploidy, balanced rearrangements, or the precise location of subchromosomal duplications or deletions; these may be detected by diagnosis with CVS or amniocentesis. The ability to report results may be impacted by maternal BMI, maternal weight, maternal systemic lupus erythematosus (SLE) and/or by certain pharmaceutical agents such as low molecular weight heparin (for example: Lovenox(R), Xaparin(R), Clexane(R) and Fragmin(R)). Note Comment [facility] Comment: [employer] is a subsidiary of [employer] using the brand [employer] This test was developed and its performance characteristics determined by [facility]. It has not been cleared or approved by the Food and Drug Administration. This laboratory is certified under the Clinical Laboratory Improvement Amendments (CLIA) as qualified to perform high complexity clinical laboratory testing and accredited by the College [employer] [place] [employer] (CAP). If there is future clinical need for adding MaterniT GENOME testing, this specimen will be available until term. [facility] samples will not be retained beyond 60 days. [facility] patients will have to send a new sample for re-sequencing ([facility] Test Code: 432760). References Comment [facility] Comment: 1. Andrew ALATORRE et al. Mag Med. 2012;14(3):296-305. 2. Marcelino DAN, et al. Prenat Diag. 2013;33(6):591-597. 3. Sunday Campos et al. Clin Chem. 2015 Apr;61(4):608-616. 4. Andrew ALATORRE et al. Mag Med. 2011;13(11):913-920. 5. ACOG/SMFM Practice Bulletin No. 226, May 2020. Blood 04/10/2025 12:0 1 PM EDT 04/10/2025 Narrative [facility] (AMBULATORY) - 04/14/2025 3:35 AM EDT Performed at: 01 - [facility] [address] [place] [address] [id number] International Specialist: Vicente Steven, Phone: [phone] Patient Fasting: N Raudel Avila MD GENETIC TESTING Final Result [facility] [address] [place] [address], [facility] [address] [place] [id number], * [place] Ob < 14 Weeks Single or First Gestation (04/09/2025 2:02 PM EDT) Anatomical Region Laterality Modality Body Ultrasound 04/09/2025 2:43 PM EDT Narrative 04/09/2025 2:39 PM EDT PAT NAME: PARKER ZAMORANO MED REC#: [id number] DA: 1990 PAT GEND: F PAT TYPE: O EXAM RENETTA: [id number] REF PHYS RAUDEL AVILA Addendum Notice - Due to Application/Epic Interface [...] clinical dates Recommendation Follow-up as clinically indicated. Glass Crusher: Chloe Maria RT R, [facility] Physician: Raudel Avila MD Electronically signed by: Raudel Avila MD at: 14:39 Procedure Note Raudel Avila MD - 04/09/2025 PAT NAME: PARKER ZAMORANO MED REC#: [id number] DA: 1990 PAT GEND: F PAT TYPE: O EXAM RENETTA: [id number] REF PHYS RAUDEL AVILA Addendum Notice - Due to Application/Epic Interface [...] GA8 w + 6 d Assigned YUMIKO:11/13/2025 [id number] d Biometry Standard COL289 bpm CRL18.0 mm 8w 2d 7% Hadlock [...] clinical dates Recommendation Follow-up as clinically indicated. Glass Crusher: Chloe Maria, RT R, [facility] Physician: Raudel Avila MD Electronically signed by: Raudel Avila MD at: 14:39 Raudel Avila MD [facility] US ORDERABLES Edited Result - Final * Chlamydia trachomatis, Neisseria gonorrhoeae, Trichomonas vaginalis, PCR - Swab, Cervix (2:00 AM EDT) Chlamydia trachomatis, FAY Negative Negative [facility] Gonococcus by FAY Negative Negative [facility] Trichomonas vaginosis Negative Negative [facility] Swab Cervix uteri structure / Unknown 04/09/2025 04/09/2025 Comment:Swab Release to [facility] e Barbra [facility] - 04/11/2025 5:36 AM EDT Performed at: [facility] [id number] International Specialist: Ania Mane MD, Phone: [phone] us Raudel Avila MD MICROBIOLOGY - GENERAL ORDERABL ES Final Result [facility] [address] [place] [address], [place] [phone] [facility] [address] [place] [address], [place] [phone] * (ABNORMAL) POC Urine (03/26/2025 5:12 PM EDT) HCG, Urine, QL Positive(A) [facility] Lot Number [id number] [facility] Internal Positive Control Positive [facility] Internal Negative Control Negative [facility] Expiration Date ,055,312 [facility] Urine 03/26/2025 5:12 PM EDT Pili Flores APRN POINT OF CARE TEST ORDERABLE S Final Result [facility]
[address] [place] [address], * Urinalysis, Microscopic Only - Urine, Clean Catch (03/26/2025 5:10 PM EDT) RBC, UA 0-2 None Seen, 0-2 /HPF 03/26/2025 5:34 PM EDT [facility] WBC, UA 0-2 None Seen, 0-2 /HPF 03/26/2025 5:34 PM EDT [facility] Bacteria, UA None Seen None Seen /HPF 03/26/2025 5:34 PM EDT [facility] Squamous Epithelial Cells, UA 0-2 None Seen, 0-2 /HPF 03/26/2025 5:34 PM EDT [facility] Hyaline Casts, UA None Seen None Seen /LPF 03/26/2025 5:34 PM EDT [facility] Methodology Automated Microscopy 03/26/2025 5:34 PM EDT [facility] Urine Urine specimen obtained by clean catch procedure / Unknown Collection / Unknown 03/26/2025 5:10 PM EDT 03/26/2025 5:25 PM EDT us Pili Flores APRN URINE ORDERABLES Final Resul t [facility]
[address] [place] [address], * (ABNORMAL) Urinalysis With Culture If Indicated - Urine, Clean Catch (03/26/2025 5:10 PM EDT) Color, UA Yellow Yellow, Straw 03/26/2025 5:34 PM EDT [facility] Appearance, UA Cloudy(A) Clear 03/26/2025 5:34 PM EDT [facility] pH, UA 7.5 5.0 - 8.0 03/26/2025 5:34 PM EDT [facility] Specific [place], UA 1.018 1.005 - 1.030 03/26/2025 5:34 PM EDT [facility] Glucose, UA Negative Negative 03/26/2025 5:34 PM EDT [facility] Ketones, UA Negative Negative 03/26/2025 5:34 PM EDT [facility] Bilirubin, UA Negative Negative 03/26/2025 5:34 PM EDT [facility] Blood, UA Negative Negative 03/26/2025 5:34 PM EDT [facility] Protein, UA Negative Negative 03/26/2025 5:34 PM EDT [facility] Leuk Esterase, UA Negative Negative 03/26/2025 5:34 PM EDT [facility] Nitrite, UA Negative Negative 03/26/2025 5:34 PM EDT [facility] Urobilinogen, UA 0.2 E.U./dL 0.2 - 1.0 E.U./dL 03/26/2025 5:34 PM EDT [facility] Urine Urine specimen obtained by clean catch procedure / Unknown Collection / Unknown 03/26/2025 5:10 PM EDT 03/26/2025 5:25 PM EDT [facility] - 03/26/2025 5:34 PM EDT In absence of clinical symptoms, the presence of pyuria, bacteria, and/or nitrites on the urinalysis result does not correlate with infection. Pili Franks V, [employer] PIPING DESIGNER URINE ORDERABLES Final Resul t [facility]
[address] [place] [address], * CBC Auto Differential (03/26/2025 4:18 PM EDT) WBC 7.08 3.40 - 10.80 10*3/mm3 03/26/2025 4:30 PM EDT [facility] RBC 4.18 3.77 - 5.28 10*6/mm3 03/26/2025 4:30 PM EDT [facility] Hemoglobin 12.3 12.0 - 15.9 g/dL 03/26/2025 4:30 PM EDT [facility] Hematocrit 37.6 34.0 - 46.6 % 03/26/2025 4:30 PM EDT [facility] MCV 90.0 79.0 - 97.0 fL 03/26/2025 4:30 PM EDT [facility] MCH 29.4 26.6 - 33.0 pg 03/26/2025 4:30 PM EDT [facility] MCHC 32.7 31.5 - 35.7 g/dL 03/26/2025 4:30 PM EDT [facility] RDW 13.2 12.3 - 15.4 % 03/26/2025 4:30 PM EDT [facility] RDW-SD 43.6 37.0 - 54.0 fl 03/26/2025 4:30 PM EDT [facility] MPV 9.9 6.0 - 12.0 fL 03/26/2025 4:30 PM EDT [facility] Platelets 230 140 - 450 10*3/mm3 03/26/2025 4:30 PM EDT [facility] Neutrophil % 70.3 42.7 - 76.0 % 03/26/2025 4:30 PM EDT [facility] Lymphocyte % 22.0 19.6 - 45.3 % 03/26/2025 4:30 PM EDT [facility] Monocyte % 6.6 5.0 - 12.0 % 03/26/2025 4:30 PM EDT [facility] Eosinophil % 0.6 0.3 - 6.2 % 03/26/2025 4:30 PM EDT [facility] Basophil % 0.4 0.0 - 1.5 % 03/26/2025 4:30 PM EDT [facility] Immature Grans % 0.1 0.0 - 0.5 % 03/26/2025 4:30 PM EDT [facility] Neutrophils, Absolute 4.97 1.70 - 7.00 10*3/mm3 03/26/2025 4:30 PM EDT [facility] Lymphocytes, Absolute 1.56 0.70 - 3.10 10*3/mm3 03/26/2025 4:30 PM EDT [facility] Monocytes, Absolute 0.47 0.10 - 0.90 10*3/mm3 03/26/2025 4:30 PM EDT [facility] Eosinophils, Absolute 0.04 0.00 - 0.40 10*3/mm3 03/26/2025 4:30 PM EDT [facility] Basophils, Absolute 0.03 0.00 - 0.20 10*3/mm3 03/26/2025 4:30 PM EDT [facility] Immature Grans, Absolute 0.01 0.00 - 0.05 10*3/mm3 03/26/2025 4:30 PM EDT [facility] nRBC 0.0 0.0 - 0.2 /100 WBC 03/26/2025 4:30 PM EDT [facility] Blood Venipuncture / Unknown 03/26/2025 4:18 PM EDT 03/26/2025 4:24 PM EDT us Pili Brandon V, [employer] PIPING DESIGNER LAB BLOOD ORDERABLES Final R esult [facility]
[address] [place] [address], * hCG, Quantitative, (03/26/2025 4:18 PM EDT) HCG Quantitative 36,415.00 mIU/mL 03/26/20 5:58 PM EDT [facility] Blood Venipuncture / Unknown 03/26/2025 4:18 PM EDT 03/26/2025 4:24 PM EDT Narrative [facility] - 03/26/2025 5:58 PM EDT [...] mIU/mL 18 Weeks 8,099 - 58,176 mIU/mL us Pili Flores APRN LAB BLOOD ORDERABLES Final R esult [facility]
[address] [place] [address], * Lipase (03/26/2025 4:18 PM EDT) Lipase 16 13 - 60 U/L 03/26/2025 4:47 PM EDT [facility] Blood Venipuncture / Unknown 03/26/2025 4:18 PM EDT 03/26/2025 4:24 PM EDT us Pili Flores APRN LAB BLOOD ORDERABLES Final R esult [facility]
[address] [place] [address], * Comprehensive Metabolic Panel (03/26/2025 4:18 PM EDT) [facility] Glucose 89 65 - 99 mg/dL 03/26/2025 4:47 PM EDT [facility] BUN 8.4 6.0 - 20.0 mg/dL 03/26/2025 4:47 PM EDT [facility] Creatinine 0.60 0.57 - 1.00 mg/dL 03/26/2025 4:47 PM EDT [facility] Sodium 137 136 - 145 mmol/L 03/26/2025 4:47 PM EDT [facility] Potassium 3.8 3.5 - 5.2 mmol/L 03/26/2025 4:47 PM EDT [facility] Chloride 103 98 - 107 mmol/L 03/26/2025 4:47 PM EDT [facility] CO2 26.0 22.0 - 29.0 mmol/L 03/26/2025 4:47 PM EDT [facility] Calcium 9.5 8.6 - 10.5 mg/dL 03/26/2025 4:47 PM EDT [facility] Total Protein 6.9 6.0 - 8.5 g/dL 03/26/2025 4:47 PM EDT [facility] Albumin 4.1 3.5 - 5.2 g/dL 03/26/2025 4:47 PM EDT [facility] ALT (SGPT) 7 1 - 33 U/L 03/26/2025 4:47 PM EDT [facility] AST (SGOT) 10 1 - 32 U/L 03/26/2025 4:47 PM EDT [facility] Alkaline Phosphatase 47 39 - 117 U/L 03/26/2025 4:47 PM EDT [facility] Total Bilirubin 0.3 0.0 - 1.2 mg/dL 03/26/2025 4:47 PM EDT [facility] Globulin 2.8 gm/dL 03/26/2025 4:47 PM EDT [facility] Comment:Calculated Result A/G Ratio 1.5 g/dL 03/26/2025 4:47 PM EDT [facility] BUN/Creatinine Ratio 14.0 7.0 - 25.0 03/26/2025 4:47 PM EDT [facility] Anion Gap 8.0 5.0 - 15.0 mmol/L 03/26/2025 4:47 PM EDT [facility] eGFR 121.0 >60.0 mL/min/1.7 3 03/26/2025 4:47 PM EDT [facility] Blood Venipuncture / Unknown 03/26/2025 4:18 PM EDT 03/26/2025 4:24 PM EDT [facility] - 03/26/2025 4:47 PM EDT GFR [...] APRN LAB BLOOD ORDERABLES Final R esult [facility]
[address] [place] [address], * LIQUID-BASED PAP SMEAR WITH HPV GENOTYPING IF ASCUS (PRAFUL,COR,MAD) (11/09/2024 3:18 PM EDT) Reference Lab Report [facility] [address] [place] [address] or [phone] Ulices Quintanilla M.D., Quality Manager PATIENT NAME [facility]AT[facility]. [id number] AGE SEX SSN CLIENT REF # [id number] [address] 1990 F [id number] [id number] REQUESTING M.Mariann. [place] [address] ARYA HORVATH DATE COLLECTED DATE RECEIVED DATE REPORTED 11/09/2024 11/09/2024 11/13/2024 ThinPrep Pap with Cytyc Imaging DIAGNOSIS: Epithelial cell abnormality. (ASC) Atypical squamous cells of undetermined significance. Professional interpretation rendered by Ulices Quintanilla M.D., F.C.A.P. at [facility], [facility], [address] [place] [address]. SPECIMEN ADEQUACY: SATISFACTORY FOR EVALUATION Transformation zone is present. SOURCE OF SPECIMEN: CERVICAL/ENDOCERVI ERIN SLIDES: 1 CLINICAL HISTORY: Screening for STDs (sexually transmitted diseases) Routine gynecological examination Menorrhagia with regular cycle Other fatigue HPV HR-HPV POOL: Negative The Aptima HPV assay is an in vitro nucleic acid amplification test for the qualitative detection of E6/E7 viral messenger RNA from 14 high risk types of HPV in cervical specimens. The high risk HPV types detected include: 16, 18, 31, 33, 35, 39, 45, 51, 52, 56, 58, 59, 66, 68 Chlamydia / Gonorrhea CHLAMYDIA TRACHOMATIS: Negative NEISSERIA GONORRHOEAE: Negative The Aptima Combo 2 assay is a target amplification nucleic acid probe test that utilizes target capture for the in vitro qualitative detection and differentiation of ribosomal RNA from Chlamydia trachomatis and Neisseria gonorrhoeae to aid in the diagnosis of chlamydial and gonococcal disease using the [place] system. Trichomonas TRICHOMONAS VAGINALIS: Positive The Aptima Trichomonas vaginalis assay is an in vitro qualitative nucleic acid amplification test for the detection of ribosomal RNA to aid in the diagnosis of trichomoniasis. Sendout Ancillary Vaginosis Tests BREANNA GLABRATA: Negative BREANNA PARAPSILOSIS: Negative BREANNA TROPICALIS: Negative MD BREANNA ALBICANS: Negative COMMENT: The above results are intended for medical diagnosis and treatment purposes only. Results from this assay (s) should be interpreted in conjunction with other laboratory and clinical data. The test is not intended to differentiate carriers of the organism from those with active infections. Therapeutic success or failure cannot be assessed using this test because DNA may persist following antimicrobial therapy. Nucleic acid base changes or mutations can result in false negative reactions. This test was developed and its performance characteristics determined by [facility] It has not been cleared or approved by the U.S. Food and Drug Administration. The FDA has determined that such clearance or approval is not necessary. [facility] ([facility]) is located in [place], [place] [facility] COORDINATOR: HANG GOODRICH (ASCP) REVIEWED, DIAGNOSED AND ELECTRONICALLY SIGNED BY: Ulices Quintanilla M.D., F.C.A.P. CPT CODES: [id number], [id number], [id number], [id number], [id number], [id number] 11/13/2024 9:17 PM EDT [facility] ThinPrep Vial Cervix uteri structure / Unknown Collection / Unknown 11/09/2024 3:18 PM EDT 11/09/2024 3:18 PM EDT Arya Horvath APRN PATHOLOGY/CYTOLOGY O RDERABLES Final Result [facility]
[address] [place] [address], from Last 3 Months or Most Recently Relevant to Health Maintenance Insurance [facility] Advance Directives * CPR (Attempt to Resuscitate) (Latest Code Status on File) Date Activated Date Inactivated Comments 11/23/2023 12:32 AM 11/23/2023 7:08 PM Question Answer Comments Code Status (Patient has no pulse and is not breathing): CPR (Attempt to Resuscitate) Medical Interventions (Patie nt has pulse or is breathing): Full Support Level Of Support Discussed With: Patient Care Teams Paper Cutter Relationship Specialty Start Date End Date Provider, [place] [address] PCP - General 10/24/22
--- OUTSIDE RECORDS SUMMARY | 2025-04-25 16:42 | XMS_ITS | Encounter Summary ---
Author Organization [facility] Address [address] [place] [address] Care Team Providers Care Service Center Manager Name Role Phone Provider, No Known Primary Care Provider Unavail able Encounter Details Date Type Department Care Team (Latest Contact Info) Description 04/09/2025 Travel Social History Tobacco Use Types Packs/Day [...] Info) Description 05/07/2025 2:[address] [facility] [address] [facility] [address] [place], [place] [id number] Raudel Henning MD [address] [place] [address] documented as of this encounter Visit Diagnoses Not on filedocumented in this encounter Care Teams Service Center Manager Relationship Specialty Start Date End Date Provider, No Known [facility] [place] [address] PCP - General 10/24/22 documented as of this encounter
--- NOTE | 2025-04-25 16:43 | XR_ITS ---
PROCEDURE INFORMATION: Exam: XR Right Foot Exam date and time: 04/25/2025 4:54 PM Age: 34 years old Clinical indication: Pain; Ankle; Right; Additional info: Injury of right ankle/foot TECHNIQUE: Imaging protocol: Radiologic exam of the right foot. Views: 3 or more views. COMPARISON: CR XR ANKLE RT MIN 3V 04/25/2025 4:54 PM FINDINGS: Bones/joints: Normal. No acute fracture identified. Soft tissues: Normal. IMPRESSION: No acute findings.
--- NOTE | 2025-04-25 16:43 | XR_ITS ---
PROCEDURE INFORMATION: Exam: XR Right Ankle Exam date and time: 04/25/2025 4:54 PM Age: 34 years old Clinical indication: Pain; Ankle; Right; Additional info: Ankle injury TECHNIQUE: Imaging protocol: Radiologic exam of the right ankle. Views: 3 or more views. COMPARISON: CR XR FOOT RT MIN 3V 04/25/2025 4:54 PM FINDINGS: Bones/joints: No acute fracture identified. Soft tissues: Soft tissue swelling laterally. IMPRESSION: No acute fracture.
--- NOTE | 2025-04-25 16:43 | HMH.EDGENADL ---
Discharge Plan Disposition Patient Disposition: Home, Self-Care Condition: Good Prescriptions Prescriptions: No Action cefadroxil 500 mg capsule 500 mg PO BID 7 Days Qty: 14 0RF Referrals Follow up/Referrals: Provider,Referral, MD [Primary Care Provider, Medical] - See instructions Cody Lane DO [Staff Physician, Orthopedics] - See instructions Activity Restrictions/Add. Instructions Additional Instructions/Restrictions: Please call Dr. Lane's orthopedic clinic in the morning to schedule an appointment. If you have any new or worsening symptoms please return to the ER for further evaluation. Clinical Impressions Clinical Impression: Injury of ankle, right Print Language Print Language: Bahamian Discharge ED Provider: Adonay Galicia Adult HPI General Chief complaint: Extremity Injury, Lower Stated complaint: AO 04/25/25 1545 injury right foot Time Seen by Provider: 04/25/25 16:38 Mode of Arrival: Ambulatory Source of Information: Patient Description of Symptoms (Recalled from ER Triage Doc. by RN): patient present to the ED for a possible sprained/broken right ankle. Patient has a long cardigan on adn tripped on it trying to get into the car. Patient unable to flex/extend ankle. Patient also 12 weeks . History of Present Illness HPI narrative: Is a 34-year-old female patient, who is currently 12 weeks , and presented to the emergency department today for evaluation of a right ankle injury. Patient states that she was getting out of her car but her foot got caught on something when she placed her foot on the ground her ankle twisted inward and she felt a pop followed by immediate pain. She has not had any numbness or tingling in the foot since that time. She has not noted any motor deficits in the foot. However, she has noted swelling and bruising that have appeared on the lateral aspect of the ankle. She has no cardiac risk factors and is not on any anticoagulant therapies. Related Data Previous Rx's ?Medication ?Instructions ?Recorded cefadroxil 500 mg capsule 500 mg PO BID 7 days #14 caps 03/04/25 Allergies Allergy/AdvReac Type Severity Reaction Status Date / Time No Known Drug Allergies Allergy Unknown Verified 03/04/25 21:52 allergy reaction [facility] Disclaimer: The information contained in this section may have been updated after the patient was seen, as this information can be updated by other users. Social History (Updated 03/05/25 @ 10:17 by Tan Hi MD) Smoking Status: Never smoker alcohol intake: never current occupational status: employed Travel in the last 8 weeks?: Inside the [place] Have you lived/traveled outside US in past 30 days?: No Contact w/someone who lives/traveled outside US past 30 days?: No Exposure to someone with infectious disease in past 14 days?: No Do you have a fever (greater than 100.4 F or 38 C)?: No Have you tested positive for COVID-19?: No Exposed to someone with COVID-19 in past 14 days?: No Do you have a sore throat?: No Do you have a cough?: No Do you have any weakness?: No Do you have any diarrhea?: No Are you experiencing any unusual bleeding?: No Do you have any muscle aches/pain?: No Do you have any abdominal pain?: No Are you experiencing loss of taste or smell?: No ROS Obtained: Yes Systems reviewed as appropriate & no additional complaints except as documented Physical Exam General General appearance: other (See MDM) Respiratory Respiratory exam: Present other (See MDM) Cardiovascular Cardiovascular exam: Present other (See MDM) Neurological Exam Neurological exam: Present other (See MDM) Medical Decision Making Medical Records Medical records reviewed: Yes I reviewed the patient's medical records. Screening: Per USPSTF and CDC recommendations, given the prevalence of disease in our region, it is our hospital?s policy to screen for HIV and viral Hepatitis for all patients aged 18 and over and those with ongoing risk factors. Jon Inquiry Pt receiving controlled substance: No Jon was queried for this patient: No Vital Signs: 04/25/25 16:34 04/25/25 17:10 04/25/25 17:15 Temperature 98.0 F Temperature Source Temporal Artery Scan Pulse Rate 67 90 Pulse Rate [Right Radial] 90 Respiratory Rate 18 Blood Pressure 117/71 100/71 L Blood Pressure [Right Arm] 116/79 Blood Pressure Mean 86 76 Blood Pressure Mean [Right Arm] 91 Blood Pressure Source [Right Arm] Automatic Cuff Blood Pressure Position [Right Arm] Sitting 02 Sat by Pulse Oximetry 100 100 100 Oxygen Delivery Method Room Air Orders (Tests/Meds): ED MEDICATIONS Discontinued Medications Generic Name Dose Route Start Last Admin Trade Name Freq PRN Reason Stop Dose Admin Acetaminophen 1,000 mg 04/25/25 16:46 04/25/25 16:50 Acetaminophen 500mg Tab PO 04/25/25 16:47 1,000 mg ONCE ONE Administration Oxycodone HCl 5 mg 04/25/25 17:28 04/25/25 17:37 Oxycodone 5mg Immediate Release Tablet PO 04/25/25 17:29 5 mg ONCE ONE Administration ORDERS Category Date Time Status Ankle XR -Right minimum 3 Views [XR ankle RT min 3V] Exams 04/25/25 16:43 Completed Stat Foot XR right minimum 3 views [XR foot RT min 3V] Stat Exams 04/25/25 16:43 Completed Medical Decision Narrative: In summary, this is a 34-year-old female patient who is presenting to the emergency department today for evaluation of a inversion ankle injury on the right. Comorbidities include current at 12 weeks. She is on no anticoagulant therapies. On initial evaluation of the patient they were resting comfortably in no acute distress and nontoxic in appearance. They are hemodynamically stable, saturating well room air, and are neurologically intact. On physical examination of the patient she has tenderness over the posterior aspect of the lateral malleolus. There is ecchymosis and fusiform swelling of the site present. Motor and sensory function are intact in all terminal nerve distributions of the right lower extremity. She has no tenderness over the proximal fibular head. Given this I have a low concern for Maisonneuve fracture. Differential diagnosis includes lateral malleolus fracture, medial malleolus fracture, trimalleolar fracture, metatarsal fracture, among others. I stated above I have a low suspicion for Maisonneuve fracture so we will not obtain x-rays of the proximal tib-fib. Workup was initiated with x-rays of the right ankle and right foot. Initial interventions include 1000 mg of Tylenol. X-rays were personally interpreted by me and demonstrate no acute fractures or dislocations. Official radiology read is in agreement states there is no acute abnormality. On repeat reassessment of the patient she was still experiencing pain refractory to Tylenol. We did treat with 5 mg of oxycodone and and her pain is not controlled. Given the soft tissue swelling and ecchymosis it is likely that she has a sprain or potentially a ligamentous tear. We have discussed Tylenol for pain control at home. We have placed patient in a cam boot. I have requested that she follow-up with orthopedics for further evaluation of her ankle injury. At this time all questions have been answered and all parties are agreeable with the decision to discharge home Critical Care Critical Care Time Critical Care Time: No
[2025-04-25] MEDS: ACETAMINOPHEN 500MG TAB 1000 MG PO (16:50)
[2025-04-25 17:10] VITALS: BP 117/71; PULSE 67; O2SAT 100
[2025-04-25 17:15] VITALS: BP 100/71; PULSE 90; O2SAT 100
[2025-04-25] MEDS: OXYCODONE 5MG IMMEDIATE RELEASE TABLET 5 MG PO (17:37)
--- NOTE | 2025-04-25 18:18 | PC.NURSE ---
Pt ambulated out of her room and made her way to the nurses station on the phone and asked about her X-Ray results which I informed her that they were back and the doctor needs to review them and come speak with her, she then walked nursing home to her room turned back around and came to the nurses station and put a male on the phone on speaker phone in which he was very rude and I explained that the doctor was in a room and once he came out I would direct him to that room and he was still very rude and hung up. Pt then returned to room and then I directed the doctor to her room.
[2025-04-25 18:38] VITALS: BP 107/74; PULSE 67; RESP 18; TEMP 36.8; O2SAT 100
--- NOTE | 2025-04-25 18:44 | PC.NURSE ---
Walking Boot put on pt and paperwork signed and pt given a copy
== END 2025-04-25 18:58 | disposition home or self-care (01) ==
PROVIDERS: Emergency Provider Student in an Organized Health Care Education/Training Program
DX: O26.891 Other specified pregnancy related conditions, first trimester (principal); S99.911A Unspecified injury of right ankle, initial encounter; X50.1XXA Overexertion from prolonged static or awkward postures, initial encounter; Z3A.12 12 weeks gestation of pregnancy
CPT/HCPCS: 73610; 73630; 99283